=== PATIENT | male | born 1955 | race Caucasian/White ===

== ENCOUNTER 2018-01-03 06:21 | Emergency (ER) | payer OTHER ==
--- OUTSIDE RECORDS SUMMARY | 2018-01-03 06:24 | XMS REPORT | Clinical Summary ---
:1955 Author Organization [facility] Address [address] [place] [address] Phone Care Team Providers Name Role Phone Unavailable Primary Care Provider Unavailable Allergies No Known Allergies Current Medications Prescription Sig. Disp. Refills Start End Status Date Date lisinopril Take 10 mg by Active (PRINIVIL,ZESTRIL) mouth every 10 MG tablet morning. aspirin 81 MG Take 81 mg by Active chewable tablet mouth daily. atorvastatin Take 1 tablet (80 30 tablet 1 03/19/2 Active (LIPITOR) 80 MG mg total) by 17 018 tablet mouth nightly. clopidogrel Take 1 tablet (75 30 tablet 1 03/19/2 Active (PLAVIX) 75 mg mg total) by 17 018 tablet mouth daily. cyanocobalamin Take 1 tablet 30 tablet 1 03/19/2 Active 1000 MCG tablet (1,000 mcg total) 17 018 by mouth daily. folic acid Take 1 tablet (1 30 tablet 1 03/19/20/2 Active (FOLVITE) 1 MG mg total) by 17 018 tablet mouth daily. gabapentin Take 2 capsules 180 capsule 1 03/19/202 Active (NEURONTIN) 100 MG (200 mg total) by 17 018 capsule mouth 3 (three) times daily. heparin injection Inject 1 mL 1 mL 0 03/19/20 Active 5,000 units/mL for (5,000 Units 17 DVT total) prophylaxis/dialys subcutaneously is lock/IV bolus every 8 (eight) hours. ipratropium-albute Take 3 mLs by 1 ampule 0 03/19/2003/14/ Active rol (DUO-NEB) 0.5 nebulization 17 018 mg-3 mg(2.5 mg every 6 (six) base)/3 mL hours as needed nebulizer solution for Wheezing or Shortness of Breath for up to 360 days. metoprolol Take 25 mg by Discontinued (LOPRESSOR) 25 MG mouth 2 (two) 017 tablet times daily. lisinopril Take 20 mg by Discontinued (PRINIVIL,ZESTRIL) mouth every 017 20 MG tablet evening. bisacodyl Place 1 12 suppository 0 03/19/20 (DULCOLAX) 10 mg suppository (10 17 017 suppository mg total) rectally daily as needed for up to 10 days. insulin regular Use as directed. 10 mL 0 03/19/20 Discontinued (HUMULIN R,NOVOLIN 17 017 R) 100 unit/mL injection Active Problems Problem Noted Date Left pontine stroke ([facility]) 03/18/2017 Cerebellar stroke, acute ([facility]) 03/18/2017 Dysphagia following cerebral infarction 03/18/2017 Thrombophlebitis arm 03/18/2017 HTN (hypertension) 03/18/2017 Leukocytosis 03/18/2017 Hyponatremia 03/18/2017 Folate deficiency 03/18/2017 Vitamin B12 deficiency 03/18/2017 Macrocytic anemia 03/18/2017 Obesity (BMI 30.0-34.9) 03/18/2017 Weakness 03/01/2017 Stroke (cerebrum) ([facility]) 03/01/2017 Encounters Date Type Specialty Care Team Description 03/14/2017 Procedure Pass Gastroenterology 03/14/2017 Surgery Gastroenterology HernandezReji Milan ENDOSCOPY,SHARONA Cespedes MD 03/12/2017 Anesthesia Event Gastroenterology Adrianne Rogel MD 03/01/2017 - Hospital General Internal Lazaridis, Weakness;Cerebella 03/20/2017 Encounter Medicine MD Glenys r stroke Carmel Bhatia ([facility]);Dysarthria;I MD Krunal ntracranial Adio, [place] atherosclerosis;MD dwight Shook, circulation stroke MD Jamie ([facility]);Oropharyngea l dysphagia;Balance disorder;Leukocyto sis, unspecified type;Pain in both lower extremities;Folate deficiency;Essenti al hypertension;Left pontine stroke ([facility]);Cerebellar stroke, acute ([facility]);Dysphagia following cerebral infarction after 01/02/2017 Immunizations Name Dates Previously Given Next Due Pneumococcal Polysaccharide (Pneumovax) 03/02/2017 Social History Tobacco Use Types Packs/Day Years Used Date Current Every Day Smoker Cigarettes 0.5 45 Started: 10/01/1971 Smokeless Tobacco: Never Used Tobacco Cessation: Ready to Quit: No Alcohol Use Drinks/Week oz/Week Comments Yes 2 Glasses of wine 1.2 Sex Assigned at Date Recorded Not on file Last Filed Vital Signs Vital Sign Reading Time Taken Blood Pressure 130/60 03/20/2017 7:49 AM CDT Pulse 79 03/20/2017 7:49 AM CDT Temperature 35.8 C (96.5 F) 03/20/2017 7:49 AM CDT Respiratory Rate 18 03/20/2017 7:49 AM CDT Oxygen Saturation 96% 03/20/2017 7:49 AM CDT Inhaled Oxygen Concentration - - Weight 115.6 kg (254 lb 13.6 oz) 03/01/2017 6:00 PM CDT Height 190.5 cm (6' 3") 03/01/2017 6:00 PM CDT Body Mass Index 31.85 03/01/2017 6:00 PM CDT Plan of Treatment Not on file Procedures Procedure Name Priority Date/Time Associated Diagnosis Comments UPPER ENDOSCOPY,BIOPSY 03/14/2017 1:00 PM Dysphagia, unspecified CDT type UPPER ENDOSCOPY,PEG 03/14/2017 1:00 PM Dysphagia, unspecified CDT type after 01/02/2017 Results RHYTHM STRIP - SCAN (03/21/2017 3:20 PM)POC-Glucose meter (03/20/2017 6:04 AM) Only the most recent of64 resultswithin the time period is included. Component Value Ref Range POC-Glucose Meter 127 (H)Comment: TESTED AT [address] 70 - 110 mg/[place] [address] Specimen Performing Laboratory Blood [facility] [address] [address] CBC with platelet count + automated diff (03/19/2017 5:53 AM)Only the most recent of18 resultswithin the time period is included. Component Value Ref Range WBC 16.4 (H) 4.0 - 10.0 K/L RBC 4.76 4.20 - 5.80 M/L Hemoglobin 16.2 13.0 - 16.8 GM/DL Hematocrit 51.0 (H) 40.0 - 50.0 % MCV 107.0 (H) 82.0 - 98.0 fL MCH 34.0 (H) 27.0 - 33.0 pg MCHC 31.7 (L) 32.0 - 36.0 GM/DL RDW 13.3 10.3 - 14.2 % Platelets 351 150 - 430 K/CU MM MPV 8.2 6.5 - 10.5 fL nRBC 0 0 - 0 /100 WBC % Neutros 71 % % Lymphs 14 % % Monos 11 % % Eos 3 % % Baso 0 % # Neutros 11.70 (H) 1.80 - 8.00 K/L # Lymphs 2.21 1.48 - 4.50 K/L # Monos 1.87 (H) 0.00 - 1.30 K/L # Eos 0.56 (H) 0.00 - 0.50 K/L # Baso 0.07 0.00 - 0.20 K/L Specimen Performing Laboratory Blood - Arm, Right [address] [address] Narrative 0.00 CBC with platelet count + automated diff (03/19/2017 5:53 AM)Only the most recent of18 resultswithin the time period is included. Specimen Performing Laboratory Blood Narrative The following orders were created for panel order CBC with platelet count + automated diff. Procedure Abnormality Status --------- ------ CBC with platelet count ...[[id number]]AbnormalFinal result Please view results for these tests on the individual orders. Manual Differential (03/18/2017 3:57 AM) Component Value Ref Range Total Counted WBC Morphology Normal Platelet Morphology Normal RBC Morphology Normal Specimen Performing Laboratory Blood [address] [address] Basic Metabolic Panel (03/18/2017 3:57 AM)Only the most recent of7 resultswithin the time period is included. Component Value Ref Range Sodium 131 (L) 136 - 145 meq/L Potassium 5.0Comment: Specimen slightly hemolyzed 3.5 - 5.1 meq/L Chloride 97 (L) 98 - 107 meq/L CO2 20 (L) 22 - 29 meq/L BUN 24 (H) 7 - 21 mg/dL Creatinine 0.93Comment: Specimen slightly hemolyzed 0.57 - 1.25 mg/dL Glucose 134 (H) 70 - 105 mg/dL Calcium 9.7 8.4 - 10.2 mg/dL EGFR 82Comment: ESTIMATED GFR IS NOT ACCURATE mL/min/1.73 sq m CREATININE CLEARANCE IN PREDICTING GLOMERULAR FILTRATION RATE. ESTIMATED GFR IS NOT APPLICABLE FOR DIALYSIS PATIENTS. Specimen Performing Laboratory [place] [address] REPORT OF PROCEDURE - ENDOSCOPY URL (03/14/2017 7:05 PM)XR chest 1 view portable / bedside (03/14/2017 6:24 PM)Only the most recent of2 resultswithin the time period is included. Specimen Performing Laboratory GE RIS Narrative FINAL REPORT History: Leukocytosis. Comparison: 03/02/2017 Findings: A single view of the chest is submitted. The cardiac silhouette is within normal limits for size. There is atherosclerotic calcification of the aorta. Median sternotomy wires and a left subclavian, multilead ICD are in place. There is no focal consolidation, pneumothorax, large pleural effusion or evidence of overt pulmonary edema. There is no acute bony abnormality. Impression: No acute abnormality. Signed: Jcarlos De Los Santos MD Report Verified Date/Time:03/14/2017 21:53:49 Reading Location: [address] Reading Room Procedure Note Interface, External Ris In - 03/14/2017 9:55 PM CDT FINAL REPORT History: Leukocytosis. Comparison: 03/02/2017 Findings: A single view of the chest is submitted. The cardiac silhouette is within normal limits for size. There is atherosclerotic calcification of the aorta. Median sternotomy wires and a left subclavian, multilead ICD are in place. There is no focal consolidation, pneumothorax, large pleural effusion or evidence of overt pulmonary edema. There is no acute bony abnormality. Impression: No acute abnormality. Signed: Jcarlos De Los Santos MD Report Verified Date/Time: 03/14/2017 21:53:49 Reading Location: [address] Reading Room Urinalysis w/Microscopic (03/14/2017 4:34 PM)Only the most recent of3 resultswithin the time period is included. Component Value Ref Range Color, UA Yellow Clarity, UA Clear Specific [place], UA 1.017 1.001 - 1.035 pH, UA 5.5 5.0 - 8.0 Protein, UA Negative Negative Glucose, UA Negative Negative Ketones, UA Negative Negative Bilirubin, UA Negative Negative Blood, UA Negative Negative Nitrite, UA Negative Negative Leukocytes, UA Negative Negative Urobilinogen, UA 0.2 0.2 - 1.0 mg/dL RBC, UA <1 /HPF WBC, UA 1 /HPF Specimen Source Urine, Voided Specimen Performing Laboratory Urine - Urine, Voided [facility] [address] [address] Tissue Exam (03/14/2017 1:26 PM) Component Value Ref Range Case Report Surgical Pathology Report Case: [id number] Authorizing Provider:Reji Judge Collected: 03/14/2017 1326 MD Coy Ordering Location: [address] Received: 03/14/2017 1501 Service Pathologist: Ronaldo Castillo MD Specimen:Biopsy, Gastric, bx r/o h pylori DIAGNOSIS GASTRIC, BIOPSY - REACTIVE/CHEMICAL GASTROPATHY (SEE COMMENT) - NO INTESTINAL METAPLASIA, NO DYSPLASIA AND NO MALIGNANCY IDENTIFIED - NO HELICOBACTER PYLORI ORGANISMS IDENTIFIED ON WARTHIN-STARRY STAIN COMMENT Chemical gastropathy may be seen in association with NSAID and other agent usage, bile reflux, healing phase of gastritis and gastric ulcer and due to other etiologies. Clinical correlation is suggested. CPT Code(s) 52673, 72842 CLINICAL HISTORY Dysphagia, rule out H. Pylori SPECIMEN SOURCE Gastric biopsy GROSS DESCRIPTION Received in formalin labeled "biopsy, gastric" are three fragments measuring 0.8 x 0.6 x 0.1 cm in aggregate. The specimen is entirely submitted in A1. DB/ew MICROSCOPIC DESCRIPTION Sections reveal fragments of benign antral and corpus type gastric mucosa with fibromuscular hyperplasia within the lamina propria along with mild reactive changes within the glandular epithelium consis tent with reactive/chemical gastropathy.No active gastritis is seen. No Helicobacter pylori organisms are identified on H&E and Warthin starry stain.Intestinal metaplasia, dysplasia and malignancy are not seen. Specimen Performing Laboratory Tissue - Biopsy, Gastric [facility] [address] [place] [address] PERIPHERAL VASCULAR REPORT - SCAN (03/14/2017 7:20 AM)Prothrombin time/INR ( 3:52 AM)Only the most recent of2 resultswithin the time period is included. Component Value Ref Range Protime 13.8 11.7 - 14.7 seconds INR 1.1 <=5.9 Specimen Performing Laboratory Blood [address] [address] Narrative RECOMMENDED COUMADIN/WARFARIN INR THERAPY RANGES STANDARD DOSE: 2.0 - 3.0 Includes: PROPHYLAXIS for venous thrombosis, systemic embolization; TREATMENT for venous thrombosis and/or pulmonary embolus. HIGH RISK: Target INR is 2.5-3.5 for patients with mechanical heart valves. Venous doppler legs bilateral (03/13/2017 5:27 PM) Component Value Ref Range Ejection Fraction Specimen Performing Laboratory [facility] Impressions Right Impression 1. There is no deep venous obstruction in the common femoral, profunda femoral, femoral, popliteal, posterior tibial or peroneal veins. 2. There is no superficial venous obstruction in the great saphenous vein. Left Impression 1. There is no deep venous obstruction in the common femoral, profunda femoral, femoral, popliteal, posterior tibial or peroneal veins. 2. There is no superficial venous obstruction in the great saphenous vein. Conclusions Summary Venous duplex imaging and compression of the bilateral lower extremities were performed. The veins were adequately visualized. The bilateral venous systems were patent and compressible with no evidence of thrombus. The venous Doppler waveforms were phasic with respiration . Signature Velocities are measured in cm/s ; Diameters are measured in cm Narrative [facility] - Lower Extremities DVT Study Demographics Patient Name CHUY FLOWERS Date of Study03/13/2017 [id number] Visit Number [id number] Gender Male Accession Number [id number] Date of Birth1955 Alisha Mcdermott [place] Physician SonographerJordan Quintana MD, [facility] Procedure Type of Study: Veins: Lower Extremities DVT Study, VENOUS DOPPLER LEG, BILATERAL. Indications for Study:Leg pain . Patient Status:Routine. Study Location:Vascular Lab. Technical Quality:Adequate visualization. Risk Factors History of Disease +---------+----+ + !Diagnosis!Date!Comments ! +---------+----+ + !Other!!Smoker, Weakness, Stroke ! +---------+----+ + Procedure Note Interface, External Ris In - 03/14/2017 4:51 AM CDT [facility] - Lower Extremities DVT Study Demographics Patient Name CHUY FLOWERS Date of Study 03/13/2017 Age 61 Visit Number [id number] Gender Male Accession Number [id number] Date of 1955 Referring Brendan Hassan Room Number 2210 Physician Airport Planner Antione Orozco T Physician , RPVI Procedure Type of Study: Veins: Lower Extremities DVT Study, VENOUS DOPPLER LEG, BILATERAL. Indications for Study:Leg pain . Patient Status:Routine. Study Location:Vascular Lab. Technical Quality:Adequate visualization. Risk Factors History of Disease +---------+----+ + !Diagnosis!Date!Comments ! +---------+----+ + !Other ! !Smoker, Weakness, Stroke ! +---------+----+ + Impressions Right Impression 1. There is no deep venous obstruction in the common femoral, profunda femoral, femoral, popliteal, posterior tibial or peroneal veins. 2. There is no superficial venous obstruction in the great saphenous vein. Left Impression 1. There is no deep venous obstruction in the common femoral, profunda femoral, femoral, popliteal, posterior tibial or peroneal veins. 2. There is no superficial venous obstruction in the great saphenous vein. Conclusions Summary Venous duplex imaging and compression of the bilateral lower extremities were performed. The veins were adequately visualized. The bilateral venous systems were patent and compressible with no evidence of thrombus. The venous Doppler waveforms were phasic with respiration . Signature Velocities are measured in cm/s ; Diameters are measured in cm ECG 12 lead (03/13/2017 10:22 AM) Specimen Performing Laboratory GE MUSE Narrative Ventricular Rate 81 BPM Atrial Rate 81 BPM P-R Interval 144 ms QRS Duration 126 ms Q-T Interval 420 ms QTC Calculation(Bazett) 487 ms P Custar 79 degrees R Custar -30 degrees T Custar 60 degrees Sinus rhythm Right bundle branch block Electronic ventricular pacemaker with ventricular fusion No previous ECGs available Confirmed by MD REINA, IHAB ([id number]) on 03/14/2017 11:50:37 PM Procedure Note Interface, External Ris In - 03/14/2017 11:50 PM CDT Ventricular Rate 81 BPM Atrial Rate 81 BPM P-R Interval 144 ms QRS Duration 126 ms Q-T Interval 420 ms QTC Calculation(Bazett) 487 ms P Custar 79 degrees R Custar -30 degrees T Custar 60 degrees Sinus rhythm Right bundle branch block Electronic ventricular pacemaker with ventricular fusion No previous ECGs available Confirmed by MD REINA, IHAB ([id number]) on 03/14/2017 11:50:37 PM FL esoph swallow funct with cine video (03/11/2017 4:20 PM)Only the most recent of2 resultswithin the time period is included. Specimen Performing Laboratory GE RIS Narrative FINAL REPORT Modified barium swallow Reason for study: Swallowing dysfunction Discussion: This exam was performed in conjunction with speech pathology. The patient swallowed different thicknesses of barium, and the swallowing was observed fluoroscopically. There is aspiration of nectar laden barium. The examination was stopped at this point. Impression: Aspiration. Please refer to the report from speech pathology for further information and recommendations. Two lateral fluoroscopic images of the neck were obtained. Fluoroscopy time-0.68 minutes. Signed: Adi Martinez MD Report Verified Date/Time:03/11/2017 17:02:26 Reading Location: [id number] Ortho Consult Reading Room Procedure Note Interface, External Ris In - 03/11/2017 5:04 PM CDT FINAL REPORT Modified barium swallow Reason for study: Swallowing dysfunction Discussion: This exam was performed in conjunction with speech pathology. The patient swallowed different thicknesses of barium, and the swallowing was observed fluoroscopically. There is aspiration of nectar laden barium. The examination was stopped at this point. Impression: Aspiration. Please refer to the report from speech pathology for further information and recommendations. Two lateral fluoroscopic images of the neck were obtained. Fluoroscopy time-0.68 minutes. Signed: Adi Martinez MD Report Verified Date/Time: 03/11/2017 17:02:26 Reading Location: [id number] Ortho Consult Reading Room Uric acid (03/08/2017 5:20 AM) Component Value Ref Range Uric Acid 7.2Comment: Specimen slightly hemolyzed 2.6 - 7.2 mg/dL Specimen Performing Laboratory Blood [facility] [address] [address] XR hand 3 views right (03/07/2017 6:24 PM) Specimen Performing Laboratory GE RIS Narrative FINAL REPORT RAD, HAND, 3 VIEWS, RIGHT CLINICAL INDICATION: pt with swelling, pain right wrist COMPARISON: None FINDINGS: Frontal, oblique, and lateral views of the right hand. There is no fracture or malalignment.Mild degenerative changes noted in the joint spaces. Surrounding soft tissues are unremarkable. IMPRESSION: No acute abnormality of the right hand. Signed: JR Allen Robert MD Report Verified Date/Time:03/07/2017 20:15:39 Reading Location: [address] Reading Room Procedure Note Interface, External Ris In - 03/07/2017 8:17 PM CDT FINAL REPORT RAD, HAND, 3 VIEWS, RIGHT CLINICAL INDICATION: pt with swelling, pain right wrist COMPARISON: None FINDINGS: Frontal, oblique, and lateral views of the right hand. There is no fracture or malalignment. Mild degenerative changes noted in the joint spaces. Surrounding soft tissues are unremarkable. IMPRESSION: No acute abnormality of the right hand. Signed: JR Allen Robert MD Report Verified Date/Time: 03/07/2017 20:15:39 Reading Location: [address] Reading Room 2D Echo W/Doppler(CW/PW/Color) (03/04/2017 2:34 PM) Specimen Performing Laboratory [facility] Echocardiography Laboratory [address] [place], [place] [id number] Voice:[phone] Transthoracic Echocardiogram Pat.Name:Priscila FLOWERS.ID:[id number] .Date: 03/04/2017Refer.MD:GLENYS MUNOZ Exam Time: 2:34:00 PMStudy Type:Echo Complete Height:63inWeight:245lb BSA: 2.11 m2 DOBAge:1955,61Y Sex: MALEBP:182/85 HR:70 bpmSonogrphr: Nila Hays [facility] Pat. Stat.:Inpatient Room:[facility] Reason for Study:Suspected Cardiac Source of Emboli History / Clinical:Stroke/TIA Procedures:2D ECHO W/ DOPPLER (CW/PW/COLOR), Definity contrast done, Agitated saline done SUMMARY: Left ventricular chamber size (by PSLAX dimension) is normal (male - LVIDd4.2-5.8 cm). Typd-zm-hptpccyu concentric LV hypertrophy. The following segment(s) appear hypokinetic: basal-mid inferolateral.. The other segments contract normally. LVEF by quantitative assessment is normal (55-60%). The right ventricular chamber size and systolic function are within normal limits. IV saline contrast injection was negative for a PFO (patent foramen ovale) at rest and post Valsalva. Estimated peak systolic PA pressure is 30-35 mmHg + RA pressure. No pericardial effusion is visualized. FINDINGS: LV: Global LV systolic function is normal. Ftga-pq-umqwmbhv concentricLV hypertrophy. LVEF by quantitative assessment isnormal (55-60%). Left ventricular chamber size (by PSLAX dimension)is normal (male - LVIDd4.2-5.8 cm). The followingsegment(s) appear hypokinetic: basal-mid inferolateral..LV endocardium is adequately visualized with IV contrast. The other segments contract normally. LA: LA size is normal. RV: The right ventricular chamber size and systolic function are withinnormal limits. RV pacing wire is visualized.. RA: RA cavity size is normal. RA pacing wire is visualized. IAS:IV saline contrast injection was negative for a PFO (patent foramenovale) at rest and post Valsalva. AV: Mild AoV cusp thickening. MV: Mild MV leaflet thickening. Mild mitral regurgitation. Mild mitralannular calcification. TV: Mild tricuspid regurgitation. Estimated peak systolic PA pressureis 30-35 mmHg + RA pressure. PV: Normal PV structure appears normal by available views. AO: Aortic root size (Sinus of Valsalva diameter) is mildly dilated. Pericard: No pericardial effusion is visualized. Systemic Veins: The inferior vena cava is not well visualized. MEASUREMENTS: 2D LA Sng Plane LA Vol70.3 mlIndex 33.3 ml/m2 LA Area 23.1 cm2(8.8-23.4) LVOT Stroke Vol & Cardiac Out LVOT 2.3 cm Parasternal Long Custar Ao An 2.28 cm (1.4-2.6) LVPWd 1.43 cm Ao Rtd3.89 cm LA Ds 3.79 cm (2.3-3.9) IVSd1.43 cmLV Wmn1.43 cm LVIDd 5.63 cm (4.3-5.1)* DOPPLER LVOT Stroke Vol & Cardiac Out LVOT VTI22 cmLVOT CO 6.91 l/min LVOT SV 91.4 mlLVOT CI 3.27 l/min/m2 Aortic Valve SVi (LVOT)43.3 Velocity PG 31.7 mmHg Signed 03/04/2017 04:38 PM Doug Thomas M.D. Procedure Note Interface, External Ris In - 03/04/2017 4:39 PM CDT Echocardiography Laboratory [address] [place] [address] Voice: [phone] Transthoracic Echocardiogram Pat.Name: CHUY FLOWERS Pat.ID: [id number] .Date: 03/04/2017 Refer.MD: GLENYS MUNOZ Exam Time: 2:34:00 PM Study Type:Echo Complete Height: 63in Weight: 245lb BSA: 2.11 m2 Age: 2 1955,61Y Sex: MALE BP: 182/85 HR: 70 bpm Sonogrphr: Nila Hays [facility] Pat. Stat.:Inpatient Room: [facility] Reason for Study:Suspected Cardiac Source of Emboli History / Clinical:Stroke/TIA Procedures:2D ECHO W/ DOPPLER (CW/PW/COLOR), Definity contrast done, Agitated saline done SUMMARY: Left ventricular chamber size (by PSLAX dimension) is normal (male - LVIDd 4.2-5.8 cm). Bnpv-xl-lulsjsoo concentric LV hypertrophy. The following segment(s) appear hypokinetic: basal-mid inferolateral.. The other segments contract normally. LVEF by quantitative assessment is normal (55-60%). The right ventricular chamber size and systolic function are within normal limits. IV saline contrast injection was negative for a PFO (patent foramen ovale) at rest and post Valsalva. Estimated peak systolic PA pressure is 30-35 mmHg + RA pressure. No pericardial effusion is visualized. FINDINGS: LV: Global LV systolic function is normal. Unne-hd-yjixfyve concentric LV hypertrophy. LVEF by quantitative assessment is normal (55-60%). Left ventricular chamber size (by PSLAX dimension) is normal (male - LVIDd 4.2-5.8 cm). The following segment(s) appear hypokinetic: basal-mid inferolateral.. LV endocardium is adequately visualized with IV contrast. The other segments contract normally. LA: LA size is normal. RV: The right ventricular chamber size and systolic function are within normal limits. RV pacing wire is visualized.. RA: RA cavity size is normal. RA pacing wire is visualized. IAS: IV saline contrast injection was negative for a PFO (patent foramen ovale) at rest and post Valsalva. AV: Mild AoV cusp thickening. MV: Mild MV leaflet thickening. Mild mitral regurgitation. Mild mitral annular calcification. TV: Mild tricuspid regurgitation. Estimated peak systolic PA pressure is 30-35 mmHg + RA pressure. PV: Normal PV structure appears normal by available views. AO: Aortic root size (Sinus of Valsalva diameter) is mildly dilated. Pericard: No pericardial effusion is visualized. Systemic Veins: The inferior vena cava is not well visualized. MEASUREMENTS: 2D LA Sng Plane LA Vol 70.3 ml Index 33.3 ml/m2 LA Area 23.1 cm2 (8.8-23.4) LVOT Stroke Vol & Cardiac Out LVOT 2.3 cm Parasternal Long Custar Ao An 2.28 cm (1.4-2.6) LVPWd 1.43 cm Ao Rtd 3.89 cm LA Ds 3.79 cm (2.3-3.9) IVSd 1.43 cm LV Wmn 1.43 cm LVIDd 5.63 cm (4.3-5.1)* DOPPLER LVOT Stroke Vol & Cardiac Out LVOT VTI 22 cm LVOT CO 6.91 l/min LVOT SV 91.4 ml LVOT CI 3.27 l/min/m2 Aortic Valve SVi (LVOT) 43.3 Velocity PG 31.7 mmHg Signed 03/04/2017 04:38 PM oDug Thomas M.D. XR abdomen / KUB 1 view (03/02/2017 5:04 PM)Only the most recent of4 resultswithin the time period is included. Specimen Performing Laboratory GE RIS Impressions : Tip of the feeding tube projects over the right upper abdomen along the expected course of the descending segment of the duodenum. Visualized bowel gas pattern is nonspecific. A cluster of small subcentimeter radiopaque densities project over the right upper quadrant of uncertain etiology or clinical significance. Signed: Antione Hoffman MD Report Verified Date/Time:03/02/2017 17:11:47 Reading Location: [address] Reading Room Narrative FINAL REPORT EXAMINATION: SUPINE ABDOMEN CLINICAL INDICATION:FEEDING TUBE PLACEMENT Procedure Note Interface, External Ris In - 03/02/2017 5:30 PM CDT FINAL REPORT EXAMINATION: SUPINE ABDOMEN CLINICAL INDICATION: FEEDING TUBE PLACEMENT IMPRESSION : Tip of the feeding tube projects over the right upper abdomen along the expected course of the descending segment of the duodenum. Visualized bowel gas pattern is nonspecific. A cluster of small subcentimeter radiopaque densities project over the right upper quadrant of uncertain etiology or clinical significance. Signed: Antione Hoffman MD Report Verified Date/Time: 03/02/2017 17:11:47 Reading Location: [address] Reading Room brain without IV contrast portable (03/02/2017 12:20 PM) Specimen Performing Laboratory GE RIS Impressions : No intracranial hemorrhage or mass effect. Acute-appearing cerebellar ischemia. Signed: Maikol Gardner MD Report Verified Date/Time:03/02/2017 12:27:50 Reading Location: [address] Neuro Reading Room Narrative FINAL REPORT CT head without contrast 03/02/2017 12:25 PM CLINICAL HISTORY: post tpa TECHNIQUE: Contiguous axial images through the head without contrast were obtained utilizing the portable CT unit. This examination was performed according to our departmental dose optimization program, which includes automated exposure control, adjustment of the mA and/or kV according to patient size, and/or use of iterated reconstruction technique. COMPARISON: 03/01/2017 FINDINGS: There is no intracranial hemorrhage, mass, hydrocephalus, extra-axial collection, or midline shift. There is acute appearing ischemia in the left greater than right cerebellar hemispheres.. The visualized paranasal sinuses and tympanomastoid cavities are well-aerated. The skull is intact. Procedure Note Interface, External Ris In - 03/02/2017 12:29 PM CDT FINAL REPORT CT head without contrast 03/02/2017 12:25 PM CLINICAL HISTORY: post tpa TECHNIQUE: Contiguous axial images through the head without contrast were obtained utilizing the portable CT unit. This examination was performed according to our departmental dose optimization program, which includes automated exposure control, adjustment of the mA and/or kV according to patient size, and/or use of iterated reconstruction technique. COMPARISON: 03/01/2017 FINDINGS: There is no intracranial hemorrhage, mass, hydrocephalus, extra-axial collection, or midline shift. There is acute appearing ischemia in the left greater than right cerebellar hemispheres.. The visualized paranasal sinuses and tympanomastoid cavities are well-aerated. The skull is intact. IMPRESSION : No intracranial hemorrhage or mass effect. Acute-appearing cerebellar ischemia. Signed: Maikol Gardner MD Report Verified Date/Time: 03/02/2017 12:27:50 Reading Location: [address] Neuro Reading Room Phosphorus (03/02/2017 3:45 AM) Component Value Ref Range Phosphorus 4.1 2.3 - 4.7 mg/dL Specimen Performing Laboratory Blood - Arm, [address] [address] Magnesium (03/02/2017 3:45 AM) Component Value Ref Range Magnesium 1.9 1.6 - 2.6 mg/dL Specimen Performing Laboratory Blood - Arm, [address] [address] Hepatic function panel (03/02/2017 3:45 AM) Component Value Ref Range Protein, Total 6.6 6.0 - 8.3 gm/dL Albumin 3.7 3.5 - 5.0 g/dL Total Bilirubin 1.2 0.2 - 1.2 mg/dL Bilirubin, Direct 0.3 0.1 - 0.5 mg/dL Alkaline Phosphatase 45 40 - 150 U/L AST 22 5 - 34 U/L ALT 21 6 - 55 U/L Specimen Performing Laboratory Blood - Arm, [address] [address] CTA carotid (03/01/2017 10:52 PM) Specimen Performing Laboratory GE RIS Impressions : 25% stenosis of the right internal carotid artery origin by NASCET criteria. Less than 50% stenosis of the distal internal carotid arteries at the skull skull base by NASCET criteria. CT Angiogram head with contrast CLINICAL HISTORY: TECHNIQUE: Contiguous contrast-enhanced axial images through the head with coronal and sagittal reformations to assess the arterial circulation. Images were performed after the uncomplicated administration of IV contrast via antecubital IV. 3-D reconstructions were performed separately on a workstation and included MIP and volume rendered reconstructions of the intracranial arteries. This exam was performed to our departmental dose optimization program which includes automated exposure control, adjustment of the mA and/or kV according to patient size and/or use of iterative reconstruction techniques. COMPARISON: None. FINDINGS: The noncontrast head CT images reveal no evidence of acute infarct or hemorrhage. There are no extra-axial fluid collections. The ventricles and sulci are appropriate for the patient's age without hydrocephalus or midline shift. The skull is intact. Two periventricular hypodensities are present. 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 Mild plaque formation is present within the V4 segment with mild stenosis. Mild to moderate atherosclerotic plaque formation within both cavernous carotid arteries with moderate stenosis of the right cavernous carotid and mild stenosis of the left cavernous carotid artery. Otherwise the CT angiogram images reveal no evidence of intracranial aneurysm, or branch vessel occlusion. IMPRESSION: 1. Occluded right C4 segment. Mild stenosis of the left V4 segment. Mild to moderate atherosclerotic plaque formation within both cavernous carotid arteries with moderate stenosis of the right cavernous carotid and mild stenosis of the left cavernous carotid artery. No aneurysm or vessel occlusion. 2. No CT evidence of acute infarct or hemorrhage. Signed: Hamzah Bates MD Report Verified Date/Time:03/01/2017 23:27:49 Reading Location: [address] Reading Room Narrative FINAL REPORT CTA Neck and upper chest Clinical history: Stroke evaluation. TECHNIQUE: Multiple axial images of the neck were performed after the uncomplicated administration of IV contrast via antecubital IV. Coronal and sagittal reformations were also performed. 3-D reconstructions were performed separately on a workstation and included MIP and volume rendered reconstructions of the cervical carotids and vertebral arteries. This exam was performed to our departmental dose optimization program which includes automated exposure control, adjustment of the mA and/or kV according to patient size and/or use of iterative reconstruction techniques. Comparisons: None FINDINGS: Right common carotid artery origin is patent. Mild plaque formation is present within the common carotid artery. Moderate plaque formation is present within the right carotid bulb which extends into the right internal carotid artery results in approximately 25% stenosis by NASCET criteria. Mild plaque formation is present within the distal internal carotid artery at the skull base at the level of occipital condyles which results in less than 50% stenosis by NASCET criteria. Mild plaque formation is present at the origin of the left common carotid artery and along the course of the left common carotid artery. Moderate plaque formation is present in the left carotid bulb and mild along the proximal left internal carotid artery without demonstration of stenosis by NASCET criteria.Mild plaque formation is present within the distal internal carotid artery at the skull base at the level of occipital condyles which results in less than 50% stenosis by NASCET criteria. Moderate to severe stenosis of the right vertebral artery origin. Left vertebral artery origin is patent. Distally, the vertebral arteries opacify normally within the neck. No evidence for dissection. There are multilevel spondylitic changes in the cervical spine. The soft tissues of the neck are unremarkable. The visualized lung apices are clear. Partial demonstration of left chest wall pacemaker/AICD. Median sternotomy wires. Procedure Note Interface, External Ris In - 03/01/2017 11:29 PM CDT FINAL REPORT CTA Neck and upper chest Clinical history: Stroke evaluation. TECHNIQUE: Multiple axial images of the neck were performed after the uncomplicated administration of IV contrast via antecubital IV. Coronal and sagittal reformations were also performed. 3-D reconstructions were performed separately on a workstation and included MIP and volume rendered reconstructions of the cervical carotids and vertebral arteries. This exam was performed to our departmental dose optimization program which includes automated exposure control, adjustment of the mA and/or kV according to patient size and/or use of iterative reconstruction techniques. Comparisons: None FINDINGS: Right common carotid artery origin is patent. Mild plaque formation is present within the common carotid artery. Moderate plaque formation is present within the right carotid bulb which extends into the right internal carotid artery results in approximately 25% stenosis by NASCET criteria. Mild plaque formation is present within the distal internal carotid artery at the skull base at the level of occipital condyles which results in less than 50% stenosis by NASCET criteria. Mild plaque formation is present at the origin of the left common carotid artery and along the course of the left common carotid artery. Moderate plaque formation is present in the left carotid bulb and mild along the proximal left internal carotid artery without demonstration of stenosis by NASCET criteria.Mild plaque formation is present within the distal internal carotid artery at the skull base at the level of occipital condyles which results in less than 50% stenosis by NASCET criteria. Moderate to severe stenosis of the right vertebral artery origin. Left vertebral artery origin is patent. Distally, the vertebral arteries opacify normally within the neck. No evidence for dissection. There are multilevel spondylitic changes in the cervical spine. The soft tissues of the neck are unremarkable. The visualized lung apices are clear. Partial demonstration of left chest wall pacemaker/AICD. Median sternotomy wires. IMPRESSION : 25% stenosis of the right internal carotid artery origin by NASCET criteria. Less than 50% stenosis of the distal internal carotid arteries at the skull skull base by NASCET criteria. CT Angiogram head with contrast CLINICAL HISTORY: TECHNIQUE: Contiguous contrast-enhanced axial images through the head with coronal and sagittal reformations to assess the arterial circulation. Images were performed after the uncomplicated administration of IV contrast via antecubital IV. 3-D reconstructions were performed separately on a workstation and included MIP and volume rendered reconstructions of the intracranial arteries. This exam was performed to our departmental dose optimization program which includes automated exposure control, adjustment of the mA and/or kV according to patient size and/or use of iterative reconstruction techniques. COMPARISON: None. FINDINGS: The noncontrast head CT images reveal no evidence of acute infarct or hemorrhage. There are no extra-axial fluid collections. The ventricles and sulci are appropriate for the patient's age without hydrocephalus or midline shift. The skull is intact. Two periventricular hypodensities are present. 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 Mild plaque formation is present within the V4 segment with mild stenosis. Mild to moderate atherosclerotic plaque formation within both cavernous carotid arteries with moderate stenosis of the right cavernous carotid and mild stenosis of the left cavernous carotid artery. Otherwise the CT angiogram images reveal no evidence of intracranial aneurysm, or branch vessel occlusion. IMPRESSION: 1. Occluded right C4 segment. Mild stenosis of the left V4 segment. Mild to moderate atherosclerotic plaque formation within both cavernous carotid arteries with moderate stenosis of the right cavernous carotid and mild stenosis of the left cavernous carotid artery. No aneurysm or vessel occlusion. 2. No CT evidence of acute infarct or hemorrhage. Signed: Hamzah Bates MD Report Verified Date/Time: 03/01/2017 23:27:49 Reading Location: [address] Transitional Reading Room brain (03/01/2017 10:52 PM) Specimen Performing Laboratory [facility] Narrative FINAL REPORT CTA Neck and upper chest Clinical history: Stroke evaluation. TECHNIQUE: Multiple axial images of the neck were performed after the uncomplicated administration of IV contrast via antecubital IV. Coronal and sagittal reformations were also performed. 3-D reconstructions were performed separately on a workstation and included MIP and volume rendered reconstructions of the cervical carotids and vertebral arteries. This exam was performed to our departmental dose optimization program which includes automated exposure control, adjustment of the mA and/or kV according to patient size and/or use of iterative reconstruction techniques. Comparisons: None FINDINGS: Right common carotid artery origin is patent. Mild plaque formation is present within the common carotid artery. Moderate plaque formation is present within the right carotid bulb which extends into the right internal carotid artery results in approximately 25% stenosis by NASCET criteria. Mild plaque formation is present within the distal internal carotid artery at the skull base at the level of occipital condyles which results in less than 50% stenosis by NASCET criteria. Mild plaque formation is present at the origin of the left common carotid artery and along the course of the left common carotid artery. Moderate plaque formation is present in the left carotid bulb and mild along the proximal left internal carotid artery without demonstration of stenosis by NASCET criteria.Mild plaque formation is present within the distal internal carotid artery at the skull base at the level of occipital condyles which results in less than 50% stenosis by NASCET criteria. Moderate to severe stenosis of the right vertebral artery origin. Left vertebral artery origin is patent. Distally, the vertebral arteries opacify normally within the neck. No evidence for dissection. There are multilevel spondylitic changes in the cervical spine. The soft tissues of the neck are unremarkable. The visualized lung apices are clear. Partial demonstration of left chest wall pacemaker/AICD. Median sternotomy wires. IMPRESSION: 25% stenosis of the right internal carotid artery origin by NASCET criteria. Less than 50% stenosis of the distal internal carotid arteries at the skull skull base by NASCET criteria. CT Angiogram head with contrast CLINICAL HISTORY: TECHNIQUE: Contiguous contrast-enhanced axial images through the head with coronal and sagittal reformations to assess the arterial circulation. Images were performed after the uncomplicated administration of IV contrast via antecubital IV. 3-D reconstructions were performed separately on a workstation and included MIP and volume rendered reconstructions of the intracranial arteries. This exam was performed to our departmental dose optimization program which includes automated exposure control, adjustment of the mA and/or kV according to patient size and/or use of iterative reconstruction techniques. COMPARISON: None. FINDINGS: The noncontrast head CT images reveal no evidence of acute infarct or hemorrhage. There are no extra-axial fluid collections. The ventricles and sulci are appropriate for the patient's age without hydrocephalus or midline shift. The skull is intact. Two periventricular hypodensities are present. 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 Mild plaque formation is present within the V4 segment with mild stenosis. Mild to moderate atherosclerotic plaque formation within both cavernous carotid arteries with moderate stenosis of the right cavernous carotid and mild stenosis of the left cavernous carotid artery. Otherwise the CT angiogram images reveal no evidence of intracranial aneurysm, or branch vessel occlusion. IMPRESSION: 1. Occluded right C4 segment. Mild stenosis of the left V4 segment. Mild to moderate atherosclerotic plaque formation within both cavernous carotid arteries with moderate stenosis of the right cavernous carotid and mild stenosis of the left cavernous carotid artery. No aneurysm or vessel occlusion. 2. No CT evidence of acute infarct or hemorrhage. Signed: Hamzah Bates MD Report Verified Date/Time:03/01/2017 23:27:49 Reading Location: [address] Transitional Reading Room Procedure Note Interface, External Ris In - 03/05/2017 10:56 PM CDT FINAL REPORT CTA Neck and upper chest Clinical history: Stroke evaluation. TECHNIQUE: Multiple axial images of the neck were performed after the uncomplicated administration of IV contrast via antecubital IV. Coronal and sagittal reformations were also performed. 3-D reconstructions were performed separately on a workstation and included MIP and volume rendered reconstructions of the cervical carotids and vertebral arteries. This exam was performed to our departmental dose optimization program which includes automated exposure control, adjustment of the mA and/or kV according to patient size and/or use of iterative reconstruction techniques. Comparisons: None FINDINGS: Right common carotid artery origin is patent. Mild plaque formation is present within the common carotid artery. Moderate plaque formation is present within the right carotid bulb which extends into the right internal carotid artery results in approximately 25% stenosis by NASCET criteria. Mild plaque formation is present within the distal internal carotid artery at the skull base at the level of occipital condyles which results in less than 50% stenosis by NASCET criteria. Mild plaque formation is present at the origin of the left common carotid artery and along the course of the left common carotid artery. Moderate plaque formation is present in the left carotid bulb and mild along the proximal left internal carotid artery without demonstration of stenosis by NASCET criteria.Mild plaque formation is present within the distal internal carotid artery at the skull base at the level of occipital condyles which results in less than 50% stenosis by NASCET criteria. Moderate to severe stenosis of the right vertebral artery origin. Left vertebral artery origin is patent. Distally, the vertebral arteries opacify normally within the neck. No evidence for dissection. There are multilevel spondylitic changes in the cervical spine. The soft tissues of the neck are unremarkable. The visualized lung apices are clear. Partial demonstration of left chest wall pacemaker/AICD. Median sternotomy wires. IMPRESSION: 25% stenosis of the right internal carotid artery origin by NASCET criteria. Less than 50% stenosis of the distal internal carotid arteries at the skull skull base by NASCET criteria. CT Angiogram head with contrast CLINICAL HISTORY: TECHNIQUE: Contiguous contrast-enhanced axial images through the head with coronal and sagittal reformations to assess the arterial circulation. Images were performed after the uncomplicated administration of IV contrast via antecubital IV. 3-D reconstructions were performed separately on a workstation and included MIP and volume rendered reconstructions of the intracranial arteries. This exam was performed to our departmental dose optimization program which includes automated exposure control, adjustment of the mA and/or kV according to patient size and/or use of iterative reconstruction techniques. COMPARISON: None. FINDINGS: The noncontrast head CT images reveal no evidence of acute infarct or hemorrhage. There are no extra-axial fluid collections. The ventricles and sulci are appropriate for the patient's age without hydrocephalus or midline shift. The skull is intact. Two periventricular hypodensities are present. 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 Mild plaque formation is present within the V4 segment with mild stenosis. Mild to moderate atherosclerotic plaque formation within both cavernous carotid arteries with moderate stenosis of the right cavernous carotid and mild stenosis of the left cavernous carotid artery. Otherwise the CT angiogram images reveal no evidence of intracranial aneurysm, or branch vessel occlusion. IMPRESSION: 1. Occluded right C4 segment. Mild stenosis of the left V4 segment. Mild to moderate atherosclerotic plaque formation within both cavernous carotid arteries with moderate stenosis of the right cavernous carotid and mild stenosis of the left cavernous carotid artery. No aneurysm or vessel occlusion. 2. No CT evidence of acute infarct or hemorrhage. Signed: Hamzah Bates MD Report Verified Date/Time: 03/01/2017 23:27:49 Reading Location: [address] Reading Room Vitamin B12 and Folate (03/01/2017 7:41 PM) Component Value Ref Range Vitamin B12 273 213 - 816 pg/mL Folate 3.7 (L) >=7.0 ng/mL Specimen Performing Laboratory Blood - Arm, [address] [address] Narrative Effective 08/17/2014: Folate Reference Range Change New: >=7.0Previous: >=5.4 TSH/Free T4 If Indicated (03/01/2017 7:41 PM) Component Value Ref Range TSH 2.07 0.35 - 4.94 uIU/mL Specimen Performing Laboratory Blood - Arm, [address] [address] Hemoglobin A1c (03/01/2017 7:41 PM) Component Value Ref Range Hemoglobin A1C 5.1 4.3 - 6.1 % Specimen Performing Laboratory Blood - Arm, [address] [address] Lipid panel (03/01/2017 7:41 PM) Component Value Ref Range Triglycerides 249 mg/dL Cholesterol 235 mg/dL HDL 35 mg/dL LDL Calculated 150 mg/dL Specimen Performing Laboratory Blood - Arm, [address] [address] Narrative Triglyceride Reference Range: Low Risk <150 [id number] High Risk 200-499 Very High Risk>=500 Cholesterol Reference Range: Low Risk <200 [id number] High Risk>240 HDL Cholesterol Reference Range: Low Risk >=60 High Risk <40 LDL Cholesterol Reference Range: Optimal<100 Near [id number] Very High >=190 after 01/02/2017
--- OUTSIDE RECORDS SUMMARY | 2018-01-03 06:25 | XMS REPORT ---
:1955 [facility] [address] [place] [address] [address] [place] [address] Care Team Providers Name Role Phone GLENYS MUNOZ Unavailable Unavailable Problems This patient has no known problems. Allergies, Adverse Reactions, Alerts This patient has no known allergies or adverse reactions. Medications This patient has no known medications. Results Test Description Test Time Test Comments Text Results Atomic Results Result Comments POCT-GLUCOSE METER 2017-03-20 06:10:00 Test Item Value Reference Range Comments POC-GLUCOSE METER (BEAKER) (test 127 mg/dL 70-110 TESTED AT [address] jdgj=7635) [place] [id number] POCT-GLUCOSE [id number] 23:28:00 Test Item Value Reference Range Comments POC-GLUCOSE METER (BEAKER) 124 mg/dL 70-110 TESTED AT [address] (test ggkh=1117) [place] [id number] POCT-GLUCOSE [id number] 16:58:00 Test Item Value Reference Range Comments POC-GLUCOSE METER (BEAKER) 111 mg/dL 70-110 TESTED AT [address] (test rllo=7989) [place] [id number] POCT-GLUCOSE [id number] 11:32:00 Test Item Value Reference Range Comments POC-GLUCOSE METER (BEAKER) 120 mg/dL 70-110 TESTED AT [address] (test dphi=9534) [place] [id number] CBC W/PLT COUNT & AUTO [id number] 06:26:00 Test Item Value Reference Range Comments WHITE BLOOD CELL COUNT (BEAKER) (test gypy=096) 16.4 K/ L 4.0-10.0 RED BLOOD CELL COUNT (BEAKER) (test pccw=735) 4.76 M/ L 4.20-5.80 HEMOGLOBIN (BEAKER) (test kchh=566) 16.2 GM/DL 13.0-16.8 HEMATOCRIT (BEAKER) (test eppr=539) 51.0 % 40.0-50.0 MEAN CORPUSCULAR VOLUME (BEAKER) (test vnbh=202) 107.0 fL 82.0-98.0 MEAN CORPUSCULAR HEMOGLOBIN (BEAKER) (test 34.0 pg 27.0-33.0 vlad=002) MEAN CORPUSCULAR HEMOGLOBIN CONC (BEAKER) (test 31.7 GM/DL 32.0-36.0 cahp=243) RED CELL DISTRIBUTION WIDTH (BEAKER) (test 13.3 % 10.3-14.2 lrov=588) PLATELET COUNT (BEAKER) (test vdcg=491) 351 K/CU MM 150-430 MEAN PLATELET VOLUME (BEAKER) (test lmbn=410) 8.2 fL 6.5-10.5 NUCLEATED RED BLOOD CELLS (BEAKER) (test 0 /100 WBC 0-0 dbcx=549) NEUTROPHILS RELATIVE PERCENT (BEAKER) (test 71 % xbop=859) LYMPHOCYTES RELATIVE PERCENT (BEAKER) (test 14 % ykka=331) MONOCYTES RELATIVE PERCENT (BEAKER) (test 11 % xuxq=100) EOSINOPHILS RELATIVE PERCENT (BEAKER) (test 3 % qlch=644) BASOPHILS RELATIVE PERCENT (BEAKER) (test 0 % uimk=226) NEUTROPHILS ABSOLUTE COUNT (BEAKER) (test 11.70 K/ L 1.80-8.00 xhow=523) LYMPHOCYTES ABSOLUTE COUNT (BEAKER) (test 2.21 K/ L 1.48-4.50 keee=717) MONOCYTES ABSOLUTE COUNT (BEAKER) (test 1.87 K/ L 0.00-1.30 cxef=536) EOSINOPHILS ABSOLUTE COUNT (BEAKER) (test 0.56 K/ L 0.00-0.50 ngol=363) BASOPHILS ABSOLUTE COUNT (BEAKER) (test 0.07 K/ L 0.00-0.20 dsyh=159) 0.00POCT-GLUCOSE [id number] 06:02:00 Test Item Value Reference Range Comments POC-GLUCOSE METER (BEAKER) 126 mg/dL 70-110 TESTED AT [facility] [address] [facility] (test aaau=5563) [facility] [address] POCT-GLUCOSE [id number] 23:23:00 Test Item Value Reference Range Comments POC-GLUCOSE METER (BEAKER) 119 mg/dL 70-110 TESTED AT [address] (test gtzg=2339) [facility] [address] POCT-GLUCOSE [id number] 16:59:00 Test Item Value Reference Range Comments POC-GLUCOSE METER (BEAKER) 109 mg/dL 70-110 TESTED AT [address] (test hglc=2862) [facility] [address] POCT-GLUCOSE [id number] 11:02:00 Test Item Value Reference Range Comments POC-GLUCOSE METER (BEAKER) 116 mg/dL 70-110 TESTED AT [address] (test sght=6556) [facility] [address] CBC W/PLT COUNT & AUTO [id number] 11:00:00 Test Item Value Reference Range Comments WHITE BLOOD CELL COUNT (BEAKER) (test atew=254) 17.7 K/ L 4.0-10.0 RED BLOOD CELL COUNT (BEAKER) (test icpw=750) 4.52 M/ L 4.20-5.80 HEMOGLOBIN (BEAKER) (test jwtj=122) 16.5 GM/DL 13.0-16.8 HEMATOCRIT (BEAKER) (test uxbe=808) 49.1 % 40.0-50.0 MEAN CORPUSCULAR VOLUME (BEAKER) (test vktf=749) 109.0 fL 82.0-98.0 MEAN CORPUSCULAR HEMOGLOBIN (BEAKER) (test 36.4 pg 27.0-33.0 jwau=270) MEAN CORPUSCULAR HEMOGLOBIN CONC (BEAKER) (test 33.6 GM/DL 32.0-36.0 ntnp=527) RED CELL DISTRIBUTION WIDTH (BEAKER) (test 13.5 % 10.3-14.2 adhl=676) PLATELET COUNT (BEAKER) (test brdr=063) 349 K/CU MM 150-430 MEAN PLATELET VOLUME (BEAKER) (test smux=141) 8.3 fL 6.5-10.5 NUCLEATED RED BLOOD CELLS (BEAKER) (test 1 /100 WBC 0-0 dzbn=316) NEUTROPHILS RELATIVE PERCENT (BEAKER) (test 74 % qpnk=064) LYMPHOCYTES RELATIVE PERCENT (BEAKER) (test 13 % wocg=988) MONOCYTES RELATIVE PERCENT (BEAKER) (test 10 % lpsy=518) EOSINOPHILS RELATIVE PERCENT (BEAKER) (test 3 % twhp=810) BASOPHILS RELATIVE PERCENT (BEAKER) (test 0 % tojl=270) NEUTROPHILS ABSOLUTE COUNT (BEAKER) (test 13.00 K/ L 1.80-8.00 jzar=957) LYMPHOCYTES ABSOLUTE COUNT (BEAKER) (test 2.23 K/ L 1.48-4.50 zthe=219) MONOCYTES ABSOLUTE COUNT (BEAKER) (test 1.81 K/ L 0.00-1.30 zoey=069) EOSINOPHILS ABSOLUTE COUNT (BEAKER) (test 0.57 K/ L 0.00-0.50 ssuh=650) BASOPHILS ABSOLUTE COUNT (BEAKER) (test 0.08 K/ L 0.00-0.20 jogs=719) 0.00(MANUAL DIFFERENTIAL)2017-03-18 11:00:00 Test Item Value Reference Range Comments TOTAL COUNTED (BEAKER) (test gaog=6400) WBC MORPHOLOGY (BEAKER) (test fids=805) Normal PLT MORPHOLOGY (BEAKER) (test wubo=150) Normal RBC MORPHOLOGY (BEAKER) (test uvim=710) Normal BASIC METABOLIC [id number] 05:59:00 Test Item Value Reference Range Comments SODIUM (BEAKER) (test 131 meq/L 136-145 nylk=417) POTASSIUM (BEAKER) (test 5.0 meq/L 3.5-5.1 Specimen slightly ppcl=343) hemolyzed CHLORIDE (BEAKER) (test 97 meq/L 98-107 nvih=918) CO2 (BEAKER) (test 20 meq/L 22-29 ysma=594) BLOOD UREA NITROGEN 24 mg/dL 7-21 (BEAKER) (test ehen=021) CREATININE (BEAKER) (test 0.93 mg/dL 0.57-1.25 Specimen slightly fasg=333) hemolyzed GLUCOSE RANDOM (BEAKER) 134 mg/dL 70-105 (test seab=025) CALCIUM (BEAKER) (test 9.7 mg/dL 8.4-10.2 ymuf=574) EGFR (BEAKER) (test 82 mL/min/1.73 sq m ESTIMATED GFR IS NOT gaxf=8310) ACCURATE CREATININE CLEARANCE IN PREDICTING GLOMERULAR FILTRATION RATE. ESTIMATED GFR IS NOT APPLICABLE FOR DIALYSIS PATIENTS. POCT-GLUCOSE [id number] 05:30:00 Test Item Value Reference Range Comments POC-GLUCOSE METER (BEAKER) 134 mg/dL 70-110 TESTED AT [address] (test pxxv=4314) [facility] [address] POCT-GLUCOSE [id number] 00:10:00 Test Item Value Reference Range Comments POC-GLUCOSE METER (BEAKER) 123 mg/dL 70-110 TESTED AT [address] (test jtrx=8416) [place] [id number] POCT-GLUCOSE [id number] 11:47:00 Test Item Value Reference Range Comments POC-GLUCOSE METER (BEAKER) 137 mg/dL 70-110 TESTED AT [address] (test ibhr=2660) [facility] [address] CBC W/PLT COUNT & AUTO [id number] 07:21:00 Test Item Value Reference Range Comments WHITE BLOOD CELL COUNT (BEAKER) (test paxe=408) 17.1 K/ L 4.0-10.0 RED BLOOD CELL COUNT (BEAKER) (test gaoh=280) 4.53 M/ L 4.20-5.80 HEMOGLOBIN (BEAKER) (test cfsf=811) 15.8 GM/DL 13.0-16.8 HEMATOCRIT (BEAKER) (test hvvy=276) 48.6 % 40.0-50.0 MEAN CORPUSCULAR VOLUME (BEAKER) (test tdbt=654) 107.0 fL 82.0-98.0 MEAN CORPUSCULAR HEMOGLOBIN (BEAKER) (test 34.8 pg 27.0-33.0 wxqd=047) MEAN CORPUSCULAR HEMOGLOBIN CONC (BEAKER) (test 32.4 GM/DL 32.0-36.0 orvs=392) RED CELL DISTRIBUTION WIDTH (BEAKER) (test 15.2 % 10.3-14.2 guiy=010) PLATELET COUNT (BEAKER) (test tyjt=824) 323 K/CU MM 150-430 MEAN PLATELET VOLUME (BEAKER) (test wcnz=846) 8.7 fL 6.5-10.5 NUCLEATED RED BLOOD CELLS (BEAKER) (test 0 /100 WBC 0-0 gysh=255) NEUTROPHILS RELATIVE PERCENT (BEAKER) (test 72 % tcxv=928) LYMPHOCYTES RELATIVE PERCENT (BEAKER) (test 14 % ddsa=679) MONOCYTES RELATIVE PERCENT (BEAKER) (test 11 % hksu=281) EOSINOPHILS RELATIVE PERCENT (BEAKER) (test 3 % axar=293) BASOPHILS RELATIVE PERCENT (BEAKER) (test 0 % zkoy=403) NEUTROPHILS ABSOLUTE COUNT (BEAKER) (test 12.30 K/ L 1.80-8.00 iabp=107) LYMPHOCYTES ABSOLUTE COUNT (BEAKER) (test 2.33 K/ L 1.48-4.50 egxj=235) MONOCYTES ABSOLUTE COUNT (BEAKER) (test 1.78 K/ L 0.00-1.30 xqzp=527) EOSINOPHILS ABSOLUTE COUNT (BEAKER) (test 0.52 K/ L 0.00-0.50 lkns=583) BASOPHILS ABSOLUTE COUNT (BEAKER) (test 0.08 K/ L 0.00-0.20 fczx=421) 0.00POCT-GLUCOSE [id number] 06:18:00 Test Item Value Reference Range Comments POC-GLUCOSE METER (BEAKER) 135 mg/dL 70-110 TESTED AT [address] (test taxq=4275) [place] [id number] POCT-GLUCOSE [id number] 00:15:00 Test Item Value Reference Range Comments POC-GLUCOSE METER (BEAKER) 140 mg/dL 70-110 TESTED AT [address] (test tdqe=3822) [place] [id number] POCT-GLUCOSE [id number] 18:18:00 Test Item Value Reference Range Comments POC-GLUCOSE METER (BEAKER) 120 mg/dL 70-110 TESTED AT [address] (test rbmt=8708) [place] [id number] POCT-GLUCOSE [id number] 12:10:00 Test Item Value Reference Range Comments POC-GLUCOSE METER (BEAKER) 108 mg/dL 70-110 TESTED AT [address] (test lnsy=6571) [facility] [address] CBC W/PLT COUNT & AUTO [id number] 07:25:00 Test Item Value Reference Range Comments WHITE BLOOD CELL COUNT (BEAKER) (test pzcm=988) 16.7 K/ L 4.0-10.0 RED BLOOD CELL COUNT (BEAKER) (test dxku=797) 4.34 M/ L 4.20-5.80 HEMOGLOBIN (BEAKER) (test fzea=762) 15.2 GM/DL 13.0-16.8 HEMATOCRIT (BEAKER) (test mjsz=167) 46.8 % 40.0-50.0 MEAN CORPUSCULAR VOLUME (BEAKER) (test rpql=538) 108.0 fL 82.0-98.0 MEAN CORPUSCULAR HEMOGLOBIN (BEAKER) (test 35.0 pg 27.0-33.0 gxcu=197) MEAN CORPUSCULAR HEMOGLOBIN CONC (BEAKER) (test 32.5 GM/DL 32.0-36.0 yzhj=630) RED CELL DISTRIBUTION WIDTH (BEAKER) (test 13.5 % 10.3-14.2 kevx=180) PLATELET COUNT (BEAKER) (test vyfh=802) 353 K/CU MM 150-430 MEAN PLATELET VOLUME (BEAKER) (test twcj=673) 8.5 fL 6.5-10.5 NUCLEATED RED BLOOD CELLS (BEAKER) (test 0 /100 WBC 0-0 kmdp=956) NEUTROPHILS RELATIVE PERCENT (BEAKER) (test 70 % aqkt=450) LYMPHOCYTES RELATIVE PERCENT (BEAKER) (test 16 % kqkt=779) MONOCYTES RELATIVE PERCENT (BEAKER) (test 11 % nbvu=430) EOSINOPHILS RELATIVE PERCENT (BEAKER) (test 3 % bzeq=772) BASOPHILS RELATIVE PERCENT (BEAKER) (test 0 % uuoa=699) NEUTROPHILS ABSOLUTE COUNT (BEAKER) (test 11.70 K/ L 1.80-8.00 wxzf=933) LYMPHOCYTES ABSOLUTE COUNT (BEAKER) (test 2.63 K/ L 1.48-4.50 qmwq=037) MONOCYTES ABSOLUTE COUNT (BEAKER) (test 1.82 K/ L 0.00-1.30 qgdk=458) EOSINOPHILS ABSOLUTE COUNT (BEAKER) (test 0.46 K/ L 0.00-0.50 rrhg=977) BASOPHILS ABSOLUTE COUNT (BEAKER) (test 0.08 K/ L 0.00-0.20 ufpj=510) 0.00POCT-GLUCOSE [id number] 06:09:00 Test Item Value Reference Range Comments POC-GLUCOSE METER (BEAKER) 88 mg/dL 70-110 TESTED AT [address] (test cdrk=6238) [facility] [address] POCT-GLUCOSE [id number] 23:52:00 Test Item Value Reference Range Comments POC-GLUCOSE METER (BEAKER) 122 mg/dL 70-110 TESTED AT [address] (test qjki=0875) [facility] [address] POCT-GLUCOSE [id number] 16:49:00 Test Item Value Reference Range Comments POC-GLUCOSE METER (BEAKER) 106 mg/dL 70-110 TESTED AT [address] (test qbjq=3383) [facility] [address] TISSUE [id number] 14:49:00Surgical Pathology Report Case: [id number] Authorizing Provider: Reji Landis Collected: 03/14/2017 1326 MD Coy OrderingLocation: [address] Received: 2016 1501 Service Pathologist: Ronalod Castillo MD Specimen: Biopsy, Gastric, bx r/o h pylori GASTRIC, BIOPSY- REACTIVE/ CHEMICAL GASTROPATHY (SEE COMMENT)- NO INTESTINAL METAPLASIA, NO DYSPLASIA AND NO MALIGNANCY IDENTIFIED- NO HELICOBACTER PYLORI ORGANISMS IDENTIFIED ON WARTHIN -STARRY STAIN at 2: 49 PMChemical gastropathy may be seen in association with NSAID and other agent usage, bile reflux, healing phase of gastritis and gastric ulcer and due to other etiologies. Clinical correlation is suggested.[id number], [id number], rule out H. Pylori Gastric biopsy Received in formalin labeled "biopsy, gastric " are three fragments measuring 0.8 x 0.6 x 0.1 cmin aggregate. The specimen is entirely submitted in A1. DB/ew Sections reveal fragments of benign antral and corpus type gastric mucosa with fibromuscular hyperplasia within the lamina propria along with mild reactive changes within the glandular epithelium consistent with reactive/chemical gastropathy. No active gastritis is seen. No Helicobacter pylori organisms are identified on H&E and Warthin starry stain. Intestinal metaplasia, dysplasia and malignancy are not seen.POCT- GLUCOSE [id number] 11:31:00 Test Item Value Reference Range Comments POC-GLUCOSE METER (BEAKER) 108 mg/dL 70-110 TESTED AT [address] (test erin=3034) [facility] [address] CBC W/PLT COUNT & AUTO [id number] 05:32:00 Test Item Value Reference Range Comments WHITE BLOOD CELL COUNT (BEAKER) (test fmoj=730) 14.9 K/ L 4.0-10.0 RED BLOOD CELL COUNT (BEAKER) (test qggz=156) 4.81 M/ L 4.20-5.80 HEMOGLOBIN (BEAKER) (test whkp=730) 16.4 GM/DL 13.0-16.8 HEMATOCRIT (BEAKER) (test orys=965) 51.6 % 40.0-50.0 MEAN CORPUSCULAR VOLUME (BEAKER) (test hoqm=417) 107.0 fL 82.0-98.0 MEAN CORPUSCULAR HEMOGLOBIN (BEAKER) (test 34.2 pg 27.0-33.0 zmdw=548) MEAN CORPUSCULAR HEMOGLOBIN CONC (BEAKER) (test 31.9 GM/DL 32.0-36.0 fybi=395) RED CELL DISTRIBUTION WIDTH (BEAKER) (test 15.4 % 10.3-14.2 yaxn=757) PLATELET COUNT (BEAKER) (test vvjf=353) 351 K/CU MM 150-430 MEAN PLATELET VOLUME (BEAKER) (test nfsi=779) 8.5 fL 6.5-10.5 NUCLEATED RED BLOOD CELLS (BEAKER) (test 0 /100 WBC 0-0 ezpe=739) NEUTROPHILS RELATIVE PERCENT (BEAKER) (test 70 % bvva=684) LYMPHOCYTES RELATIVE PERCENT (BEAKER) (test 14 % mihu=739) MONOCYTES RELATIVE PERCENT (BEAKER) (test 13 % xgml=102) EOSINOPHILS RELATIVE PERCENT (BEAKER) (test 3 % yarq=377) BASOPHILS RELATIVE PERCENT (BEAKER) (test 1 % cmxs=420) NEUTROPHILS ABSOLUTE COUNT (BEAKER) (test 10.40 K/ L 1.80-8.00 xdwk=650) LYMPHOCYTES ABSOLUTE COUNT (BEAKER) (test 2.14 K/ L 1.48-4.50 yksu=985) MONOCYTES ABSOLUTE COUNT (BEAKER) (test 1.87 K/ L 0.00-1.30 lize=512) EOSINOPHILS ABSOLUTE COUNT (BEAKER) (test 0.38 K/ L 0.00-0.50 tzok=964) BASOPHILS ABSOLUTE COUNT (BEAKER) (test 0.10 K/ L 0.00-0.20 jqgx=896) 0.00POCT-GLUCOSE [id number] 05:17:00 Test Item Value Reference Range Comments POC-GLUCOSE METER (BEAKER) 108 mg/dL 70-110 TESTED AT [address] (test vvlz=4953) [facility] [address] POCT-GLUCOSE [id number] 00:30:00 Test Item Value Reference Range Comments POC-GLUCOSE METER (BEAKER) 92 mg/dL 70-110 TESTED AT [address] (test gisk=1517) [facility] [address] POCT-GLUCOSE [id number] 17:13:00 Test Item Value Reference Range Comments POC-GLUCOSE METER (BEAKER) 93 mg/dL 70-110 TESTED AT [address] (test oued=9257) [facility] [address] URINALYSIS W/ [id number] 17:04:00 Test Item Value Reference Range Comments COLOR (BEAKER) (test orfi=030) Yellow CLARITY (BEAKER) (test rgtv=570) Clear SPECIFIC GRAVITY UA (BEAKER) (test zoht=959) 1.017 1.001-1.035 PH UA (BEAKER) (test uutk=926) 5.5 5.0-8.0 PROTEIN UA (BEAKER) (test rjed=812) Negative Negative GLUCOSE UA (BEAKER) (test frwm=827) Negative Negative KETONES UA (BEAKER) (test ajof=824) Negative Negative BILIRUBIN UA (BEAKER) (test einp=813) Negative Negative BLOOD UA (BEAKER) (test xgfx=698) Negative Negative NITRITE UA (BEAKER) (test ismr=719) Negative Negative LEUKOCYTE ESTERASE UA (BEAKER) (test ytjg=514) Negative Negative UROBILINOGEN UA (BEAKER) (test kesy=807) 0.2 mg/dL 0.2-1.0 RBC UA (BEAKER) (test fitw=983) < /HPF WBC UA (BEAKER) (test dwse=479) 1 /HPF SOURCE(BEAKER) (test bxnu=9645) Urine, Voided POCT-GLUCOSE [id number] 11:17:00 Test Item Value Reference Range Comments POC-GLUCOSE METER (BEAKER) 91 mg/dL 70-110 TESTED AT [address] (test aopk=1401) [facility] [address] POCT-GLUCOSE [id number] 05:38:00 Test Item Value Reference Range Comments POC-GLUCOSE METER (BEAKER) 78 mg/dL 70-110 TESTED AT [facility] [address] (test ehsp=2555) [place] [address] PROTHROMBIN [id number] 04:55:00 Test Item Value Reference Range Comments PROTIME (BEAKER) (test numv=400) 13.8 seconds 11.7-14.7 INR (BEAKER) (test eyof=953) 1.1 <=5.9 RECOMMENDED COUMADIN/WARFARIN INR THERAPY RANGESSTANDARD DOSE: 2.0 - 3.0 Includes: PROPHYLAXIS forvenous thrombosis, systemic embolization; TREATMENT for venous thrombosis and/or pulmonary embolus.HIGH RISK: Target INR is 2.5-3.5 for patients with mechanical heart valves.CBC W/PLT COUNT & AUTO [id number] 04:44:00 Test Item Value Reference Range Comments WHITE BLOOD CELL COUNT (BEAKER) (test glol=753) 15.4 K/ L 4.0-10.0 RED BLOOD CELL COUNT (BEAKER) (test vshe=505) 4.57 M/ L 4.20-5.80 HEMOGLOBIN (BEAKER) (test pgfg=863) 15.9 GM/DL 13.0-16.8 HEMATOCRIT (BEAKER) (test tdef=886) 48.6 % 40.0-50.0 MEAN CORPUSCULAR VOLUME (BEAKER) (test ibcz=060) 106.0 fL 82.0-98.0 MEAN CORPUSCULAR HEMOGLOBIN (BEAKER) (test 34.8 pg 27.0-33.0 zexq=973) MEAN CORPUSCULAR HEMOGLOBIN CONC (BEAKER) (test 32.7 GM/DL 32.0-36.0 mufp=046) RED CELL DISTRIBUTION WIDTH (BEAKER) (test 15.2 % 10.3-14.2 ffyi=590) PLATELET COUNT (BEAKER) (test leyj=282) 342 K/CU MM 150-430 MEAN PLATELET VOLUME (BEAKER) (test rwvv=840) 8.6 fL 6.5-10.5 NUCLEATED RED BLOOD CELLS (BEAKER) (test 0 /100 WBC 0-0 jvrn=440) NEUTROPHILS RELATIVE PERCENT (BEAKER) (test 70 % vmis=129) LYMPHOCYTES RELATIVE PERCENT (BEAKER) (test 15 % ssnl=420) MONOCYTES RELATIVE PERCENT (BEAKER) (test 13 % qkdl=626) EOSINOPHILS RELATIVE PERCENT (BEAKER) (test 2 % ojcw=745) BASOPHILS RELATIVE PERCENT (BEAKER) (test 0 % cyxk=618) NEUTROPHILS ABSOLUTE COUNT (BEAKER) (test 10.80 K/ L 1.80-8.00 opwk=019) LYMPHOCYTES ABSOLUTE COUNT (BEAKER) (test 2.27 K/ L 1.48-4.50 yapn=972) MONOCYTES ABSOLUTE COUNT (BEAKER) (test 2.03 K/ L 0.00-1.30 hiuw=133) EOSINOPHILS ABSOLUTE COUNT (BEAKER) (test 0.30 K/ L 0.00-0.50 bwpg=651) BASOPHILS ABSOLUTE COUNT (BEAKER) (test 0.04 K/ L 0.00-0.20 ujtc=002) 0.00POCT-GLUCOSE [id number] 23:47:00 Test Item Value Reference Range Comments POC-GLUCOSE METER (BEAKER) 98 mg/dL 70-110 TESTED AT [address] (test cwhy=9284) [place] [id number] POCT-GLUCOSE [id number] 18:17:00 Test Item Value Reference Range Comments POC-GLUCOSE METER (BEAKER) 87 mg/dL 70-110 TESTED AT [address] (test ahkn=4062) [place] [id number] POCT-GLUCOSE [id number] 11:25:00 Test Item Value Reference Range Comments POC-GLUCOSE METER (BEAKER) 102 mg/dL 70-110 TESTED AT [address] (test rzhy=0363) [place] [id number] BASIC METABOLIC [id number] 09:15:00 Test Item Value Reference Range Comments SODIUM (BEAKER) (test 133 meq/L 136-145 odte=812) POTASSIUM (BEAKER) (test 5.2 meq/L 3.5-5.1 usaj=156) CHLORIDE (BEAKER) (test 94 meq/L 98-107 yymf=738) CO2 (BEAKER) (test 27 meq/L 22-29 twbr=066) BLOOD UREA NITROGEN 27 mg/dL 7-21 (BEAKER) (test ubyt=821) CREATININE (BEAKER) (test 1.15 mg/dL 0.57-1.25 kzwk=692) GLUCOSE RANDOM (BEAKER) 103 mg/dL 70-105 (test xplh=665) CALCIUM (BEAKER) (test 10.1 mg/dL 8.4-10.2 frab=318) EGFR (BEAKER) (test 64 mL/min/1.73 sq m ESTIMATED GFR IS NOT alvl=1690) ACCURATE CREATININE CLEARANCE IN PREDICTING GLOMERULAR FILTRATION RATE. ESTIMATED GFR IS NOT APPLICABLE FOR DIALYSIS PATIENTS. CBC W/PLT COUNT & AUTO [id number] 07:30:00 Test Item Value Reference Range Comments WHITE BLOOD CELL COUNT (BEAKER) (test emdx=008) 18.2 K/ L 4.0-10.0 RED BLOOD CELL COUNT (BEAKER) (test jlwt=599) 4.51 M/ L 4.20-5.80 HEMOGLOBIN (BEAKER) (test zmgu=077) 16.1 GM/DL 13.0-16.8 HEMATOCRIT (BEAKER) (test fvdr=354) 48.6 % 40.0-50.0 MEAN CORPUSCULAR VOLUME (BEAKER) (test hfzu=306) 108.0 fL 82.0-98.0 MEAN CORPUSCULAR HEMOGLOBIN (BEAKER) (test 35.6 pg 27.0-33.0 xeeg=243) MEAN CORPUSCULAR HEMOGLOBIN CONC (BEAKER) (test 33.1 GM/DL 32.0-36.0 lepe=164) RED CELL DISTRIBUTION WIDTH (BEAKER) (test 13.8 % 10.3-14.2 mmcm=507) PLATELET COUNT (BEAKER) (test kdnp=500) 345 K/CU MM 150-430 MEAN PLATELET VOLUME (BEAKER) (test ohth=856) 8.8 fL 6.5-10.5 NUCLEATED RED BLOOD CELLS (BEAKER) (test 0 /100 WBC 0-0 rghe=963) NEUTROPHILS RELATIVE PERCENT (BEAKER) (test 71 % uamj=422) LYMPHOCYTES RELATIVE PERCENT (BEAKER) (test 14 % iuqg=663) MONOCYTES RELATIVE PERCENT (BEAKER) (test 13 % hmip=014) EOSINOPHILS RELATIVE PERCENT (BEAKER) (test 2 % ovqd=556) BASOPHILS RELATIVE PERCENT (BEAKER) (test 0 % wuwv=852) NEUTROPHILS ABSOLUTE COUNT (BEAKER) (test 13.00 K/ L 1.80-8.00 wsvj=452) LYMPHOCYTES ABSOLUTE COUNT (BEAKER) (test 2.50 K/ L 1.48-4.50 ojub=350) MONOCYTES ABSOLUTE COUNT (BEAKER) (test 2.35 K/ L 0.00-1.30 ejlp=525) EOSINOPHILS ABSOLUTE COUNT (BEAKER) (test 0.32 K/ L 0.00-0.50 rdkz=774) BASOPHILS ABSOLUTE COUNT (BEAKER) (test 0.05 K/ L 0.00-0.20 wevk=050) 0.00POCT-GLUCOSE [id number] 05:27:00 Test Item Value Reference Range Comments POC-GLUCOSE METER (BEAKER) 107 mg/dL 70-110 TESTED AT [address] (test ivkx=2391) [place] [id number] POCT-GLUCOSE [id number] 23:32:00 Test Item Value Reference Range Comments POC-GLUCOSE METER (BEAKER) 121 mg/dL 70-110 TESTED AT [address] (test ofmz=7210) [place] [id number] URINALYSIS W/ [id number] 18:27:00 Test Item Value Reference Range Comments COLOR (BEAKER) (test zrkl=641) Yellow CLARITY (BEAKER) (test yzpa=750) Clear SPECIFIC GRAVITY UA (BEAKER) (test rjhj=771) 1.016 1.001-1.035 PH UA (BEAKER) (test urnl=768) 6.5 5.0-8.0 PROTEIN UA (BEAKER) (test tbnj=652) Negative Negative GLUCOSE UA (BEAKER) (test timv=062) Negative Negative KETONES UA (BEAKER) (test xker=988) Negative Negative BILIRUBIN UA (BEAKER) (test gjdy=308) Negative Negative BLOOD UA (BEAKER) (test smqo=845) Negative Negative NITRITE UA (BEAKER) (test kuts=859) Negative Negative LEUKOCYTE ESTERASE UA (BEAKER) (test czmb=766) Negative Negative UROBILINOGEN UA (BEAKER) (test vmsj=739) 0.2 mg/dL 0.2-1.0 RBC UA (BEAKER) (test ztwp=220) 0 /HPF WBC UA (BEAKER) (test vyml=156) 1 /HPF SOURCE(BEAKER) (test aaem=4402) Urine, Voided POCT-GLUCOSE [id number] 17:36:00 Test Item Value Reference Range Comments POC-GLUCOSE METER (BEAKER) 135 mg/dL 70-110 TESTED AT [facility] [address] [facility] (test kqlq=0127) [facility] [address] POCT-GLUCOSE [id number] 12:25:00 Test Item Value Reference Range Comments POC-GLUCOSE METER (BEAKER) 118 mg/dL 70-110 TESTED AT [facility] [address] [facility] (test zlgn=3831) [facility] [id number] CBC W/PLT COUNT & AUTO [id number] 07:14:00 Test Item Value Reference Range Comments WHITE BLOOD CELL COUNT (BEAKER) (test unvh=671) 17.4 K/ L 4.0-10.0 RED BLOOD CELL COUNT (BEAKER) (test qwba=789) 4.54 M/ L 4.20-5.80 HEMOGLOBIN (BEAKER) (test wunn=431) 15.5 GM/DL 13.0-16.8 HEMATOCRIT (BEAKER) (test dwbm=049) 48.7 % 40.0-50.0 MEAN CORPUSCULAR VOLUME (BEAKER) (test vbsy=797) 107.0 fL 82.0-98.0 MEAN CORPUSCULAR HEMOGLOBIN (BEAKER) (test 34.0 pg 27.0-33.0 gjap=760) MEAN CORPUSCULAR HEMOGLOBIN CONC (BEAKER) (test 31.8 GM/DL 32.0-36.0 tmmg=973) RED CELL DISTRIBUTION WIDTH (BEAKER) (test 15.3 % 10.3-14.2 nhzd=239) PLATELET COUNT (BEAKER) (test isog=770) 324 K/CU MM 150-430 MEAN PLATELET VOLUME (BEAKER) (test ykxv=576) 8.8 fL 6.5-10.5 NUCLEATED RED BLOOD CELLS (BEAKER) (test 0 /100 WBC 0-0 sjtk=496) NEUTROPHILS RELATIVE PERCENT (BEAKER) (test 69 % hjrh=681) LYMPHOCYTES RELATIVE PERCENT (BEAKER) (test 15 % cszg=371) MONOCYTES RELATIVE PERCENT (BEAKER) (test 14 % hsgv=099) EOSINOPHILS RELATIVE PERCENT (BEAKER) (test 2 % saom=990) BASOPHILS RELATIVE PERCENT (BEAKER) (test 0 % mpyu=641) NEUTROPHILS ABSOLUTE COUNT (BEAKER) (test 12.10 K/ L 1.80-8.00 qkvc=745) LYMPHOCYTES ABSOLUTE COUNT (BEAKER) (test 2.56 K/ L 1.48-4.50 wtjq=845) MONOCYTES ABSOLUTE COUNT (BEAKER) (test 2.37 K/ L 0.00-1.30 evjy=910) EOSINOPHILS ABSOLUTE COUNT (BEAKER) (test 0.35 K/ L 0.00-0.50 zdje=215) BASOPHILS ABSOLUTE COUNT (BEAKER) (test 0.08 K/ L 0.00-0.20 xwaf=063) 0.00PROTHROMBIN [id number] 06:40:00 Test Item Value Reference Range Comments PROTIME (BEAKER) (test vxna=104) 13.5 seconds 11.7-14.7 INR (BEAKER) (test jlrr=953) 1.0 <=5.9 RECOMMENDED COUMADIN/WARFARIN INR THERAPY RANGESSTANDARD DOSE: 2.0 - 3.0 Includes: PROPHYLAXIS forvenous thrombosis, systemic embolization; TREATMENT for venous thrombosis and/or pulmonary embolus.HIGH RISK: Target INR is 2.5-3.5 for patients with mechanical heart valves.POCT-GLUCOSE [id number] 06:25:00 Test Item Value Reference Range Comments POC-GLUCOSE METER (BEAKER) 93 mg/dL 70-110 TESTED AT [address] (test kxpq=1116) [place] [address] POCT-GLUCOSE [id number] 23:57:00 Test Item Value Reference Range Comments POC-GLUCOSE METER (BEAKER) 98 mg/dL 70-110 TESTED AT [address] (test itsl=9705) [place] [id number] POCT-GLUCOSE [id number] 17:41:00 Test Item Value Reference Range Comments POC-GLUCOSE METER (BEAKER) 95 mg/dL 70-110 TESTED AT [address] (test ruab=2878) [place] [address] POCT-GLUCOSE [id number] 15:26:00 Test Item Value Reference Range Comments POC-GLUCOSE METER (BEAKER) 125 mg/dL 70-110 TESTED AT [address] (test ualj=1857) [place] [address] CBC W/PLT COUNT & AUTO [id number] 09:36:00 Test Item Value Reference Range Comments WHITE BLOOD CELL COUNT (BEAKER) (test dndw=279) 15.6 K/ L 4.0-10.0 RED BLOOD CELL COUNT (BEAKER) (test jxvq=134) 4.45 M/ L 4.20-5.80 HEMOGLOBIN (BEAKER) (test lxyn=701) 15.5 GM/DL 13.0-16.8 HEMATOCRIT (BEAKER) (test ifsc=696) 47.7 % 40.0-50.0 MEAN CORPUSCULAR VOLUME (BEAKER) (test jabf=270) 107.0 fL 82.0-98.0 MEAN CORPUSCULAR HEMOGLOBIN (BEAKER) (test 34.8 pg 27.0-33.0 inbl=497) MEAN CORPUSCULAR HEMOGLOBIN CONC (BEAKER) (test 32.4 GM/DL 32.0-36.0 qgew=562) RED CELL DISTRIBUTION WIDTH (BEAKER) (test 15.3 % 10.3-14.2 hlrf=678) PLATELET COUNT (BEAKER) (test yogk=598) 291 K/CU MM 150-430 MEAN PLATELET VOLUME (BEAKER) (test ulzo=565) 8.9 fL 6.5-10.5 NUCLEATED RED BLOOD CELLS (BEAKER) (test 0 /100 WBC 0-0 zesj=002) NEUTROPHILS RELATIVE PERCENT (BEAKER) (test 69 % bzlo=529) LYMPHOCYTES RELATIVE PERCENT (BEAKER) (test 15 % lkjq=547) MONOCYTES RELATIVE PERCENT (BEAKER) (test 14 % qiij=814) EOSINOPHILS RELATIVE PERCENT (BEAKER) (test 2 % orqa=035) BASOPHILS RELATIVE PERCENT (BEAKER) (test 1 % snma=204) NEUTROPHILS ABSOLUTE COUNT (BEAKER) (test 10.80 K/ L 1.80-8.00 gflq=851) LYMPHOCYTES ABSOLUTE COUNT (BEAKER) (test 2.27 K/ L 1.48-4.50 kixv=427) MONOCYTES ABSOLUTE COUNT (BEAKER) (test 2.16 K/ L 0.00-1.30 blru=715) EOSINOPHILS ABSOLUTE COUNT (BEAKER) (test 0.28 K/ L 0.00-0.50 luvn=241) BASOPHILS ABSOLUTE COUNT (BEAKER) (test 0.09 K/ L 0.00-0.20 avbj=261) 0.00POCT-GLUCOSE [id number] 06:35:00 Test Item Value Reference Range Comments POC-GLUCOSE METER (BEAKER) 132 mg/dL 70-110 TESTED AT [address] (test xkzx=4791) [facility] [address] POCT-GLUCOSE [id number] 06:32:00 Test Item Value Reference Range Comments POC-GLUCOSE METER (BEAKER) 120 mg/dL 70-110 TESTED AT [address] (test tjlz=0900) [facility] [address] POCT-GLUCOSE [id number] 05:58:00 Test Item Value Reference Range Comments POC-GLUCOSE METER (BEAKER) 107 mg/dL 70-110 TESTED AT [address] (test cmud=4874) [facility] [address] POCT-GLUCOSE [id number] 05:32:00 Test Item Value Reference Range Comments POC-GLUCOSE METER (BEAKER) 140 mg/dL 70-110 TESTED AT [address] (test iruc=3910) [place] [id number] POCT-GLUCOSE [id number] 05:23:00 Test Item Value Reference Range Comments POC-GLUCOSE METER (BEAKER) 159 mg/dL 70-110 TESTED AT [address] (test plic=6224) [facility] [address] POCT-GLUCOSE [id number] 05:08:00 Test Item Value Reference Range Comments POC-GLUCOSE METER (BEAKER) 140 mg/dL 70-110 TESTED AT [address] (test bnrq=4660) [facility] [address] POCT-GLUCOSE [id number] 04:59:00 Test Item Value Reference Range Comments POC-GLUCOSE METER (BEAKER) 107 mg/dL 70-110 TESTED AT [address] (test hgkk=5739) [facility] [address] POCT-GLUCOSE [id number] 04:52:00 Test Item Value Reference Range Comments POC-GLUCOSE METER (BEAKER) 118 mg/dL 70-110 TESTED AT [address] (test tbfd=3102) [place] [id number] CBC W/PLT COUNT & AUTO [id number] 08:00:00 Test Item Value Reference Range Comments WHITE BLOOD CELL COUNT (BEAKER) (test bcqc=312) 14.0 K/ L 4.0-10.0 RED BLOOD CELL COUNT (BEAKER) (test dnuh=715) 4.61 M/ L 4.20-5.80 HEMOGLOBIN (BEAKER) (test imps=824) 16.0 GM/DL 13.0-16.8 HEMATOCRIT (BEAKER) (test omql=351) 50.3 % 40.0-50.0 MEAN CORPUSCULAR VOLUME (BEAKER) (test yvzb=024) 109.0 fL 82.0-98.0 MEAN CORPUSCULAR HEMOGLOBIN (BEAKER) (test 34.7 pg 27.0-33.0 fxpy=998) MEAN CORPUSCULAR HEMOGLOBIN CONC (BEAKER) (test 31.8 GM/DL 32.0-36.0 vndm=434) RED CELL DISTRIBUTION WIDTH (BEAKER) (test 13.8 % 10.3-14.2 kvvs=700) PLATELET COUNT (BEAKER) (test tzsd=776) 252 K/CU MM 150-430 MEAN PLATELET VOLUME (BEAKER) (test ylaa=090) 9.0 fL 6.5-10.5 NUCLEATED RED BLOOD CELLS (BEAKER) (test 0 /100 WBC 0-0 nipw=322) NEUTROPHILS RELATIVE PERCENT (BEAKER) (test 69 % xvak=709) LYMPHOCYTES RELATIVE PERCENT (BEAKER) (test 13 % ascx=616) MONOCYTES RELATIVE PERCENT (BEAKER) (test 15 % lbai=749) EOSINOPHILS RELATIVE PERCENT (BEAKER) (test 3 % teoa=816) BASOPHILS RELATIVE PERCENT (BEAKER) (test 0 % avvl=240) NEUTROPHILS ABSOLUTE COUNT (BEAKER) (test 9.56 K/ L 1.80-8.00 tatq=117) LYMPHOCYTES ABSOLUTE COUNT (BEAKER) (test 1.84 K/ L 1.48-4.50 fhnt=611) MONOCYTES ABSOLUTE COUNT (BEAKER) (test 2.13 K/ L 0.00-1.30 bpyx=391) EOSINOPHILS ABSOLUTE COUNT (BEAKER) (test 0.39 K/ L 0.00-0.50 zyyh=525) BASOPHILS ABSOLUTE COUNT (BEAKER) (test 0.03 K/ L 0.00-0.20 rosb=097) CBC W/PLT COUNT & AUTO [id number] 10:07:00 Test Item Value Reference Range Comments WHITE BLOOD CELL COUNT (BEAKER) (test vlkb=199) 11.8 K/ L 4.0-10.0 RED BLOOD CELL COUNT (BEAKER) (test iyhp=418) 4.33 M/ L 4.20-5.80 HEMOGLOBIN (BEAKER) (test sdjh=198) 15.8 GM/DL 13.0-16.8 HEMATOCRIT (BEAKER) (test ampe=942) 47.4 % 40.0-50.0 MEAN CORPUSCULAR VOLUME (BEAKER) (test qmrn=496) 109.0 fL 82.0-98.0 MEAN CORPUSCULAR HEMOGLOBIN (BEAKER) (test 36.5 pg 27.0-33.0 qofw=502) MEAN CORPUSCULAR HEMOGLOBIN CONC (BEAKER) (test 33.3 GM/DL 32.0-36.0 sios=047) RED CELL DISTRIBUTION WIDTH (BEAKER) (test 13.7 % 10.3-14.2 xazj=743) PLATELET COUNT (BEAKER) (test hrhp=586) 204 K/CU MM 150-430 MEAN PLATELET VOLUME (BEAKER) (test omvt=528) 9.1 fL 6.5-10.5 NUCLEATED RED BLOOD CELLS (BEAKER) (test 0 /100 WBC 0-0 puah=327) NEUTROPHILS RELATIVE PERCENT (BEAKER) (test 61 % rowt=117) LYMPHOCYTES RELATIVE PERCENT (BEAKER) (test 17 % tzuz=166) MONOCYTES RELATIVE PERCENT (BEAKER) (test 20 % doig=854) EOSINOPHILS RELATIVE PERCENT (BEAKER) (test 2 % fhyc=167) BASOPHILS RELATIVE PERCENT (BEAKER) (test 1 % ejwf=112) NEUTROPHILS ABSOLUTE COUNT (BEAKER) (test 7.21 K/ L 1.80-8.00 tgur=867) LYMPHOCYTES ABSOLUTE COUNT (BEAKER) (test 1.97 K/ L 1.48-4.50 hwmc=285) MONOCYTES ABSOLUTE COUNT (BEAKER) (test 2.31 K/ L 0.00-1.30 swsz=001) EOSINOPHILS ABSOLUTE COUNT (BEAKER) (test 0.28 K/ L 0.00-0.50 obze=321) BASOPHILS ABSOLUTE COUNT (BEAKER) (test 0.07 K/ L 0.00-0.20 yqla=416) POCT-GLUCOSE [id number] 05:43:00 Test Item Value Reference Range Comments POC-GLUCOSE METER (BEAKER) 129 mg/dL 70-110 TESTED AT [address] (test ijwz=3897) [facility] [address] POCT-GLUCOSE [id number] 23:48:00 Test Item Value Reference Range Comments POC-GLUCOSE METER (BEAKER) 112 mg/dL 70-110 TESTED AT [address] (test pvok=2948) [facility] [address] POCT-GLUCOSE [id number] 16:38:00 Test Item Value Reference Range Comments POC-GLUCOSE METER (BEAKER) 102 mg/dL 70-110 TESTED AT [address] (test ugin=8617) [facility] [address] POCT-GLUCOSE [id number] 11:20:00 Test Item Value Reference Range Comments POC-GLUCOSE METER (BEAKER) 114 mg/dL 70-110 TESTED AT [address] (test cnsi=5265) [facility] [address] CBC W/PLT COUNT & AUTO [id number] 07:23:00 Test Item Value Reference Range Comments WHITE BLOOD CELL COUNT (BEAKER) (test phou=726) 12.8 K/ L 4.0-10.0 RED BLOOD CELL COUNT (BEAKER) (test evzy=171) 4.78 M/ L 4.20-5.80 HEMOGLOBIN (BEAKER) (test frea=659) 15.7 GM/DL 13.0-16.8 HEMATOCRIT (BEAKER) (test gock=642) 52.1 % 40.0-50.0 MEAN CORPUSCULAR VOLUME (BEAKER) (test estv=434) 109.0 fL 82.0-98.0 MEAN CORPUSCULAR HEMOGLOBIN (BEAKER) (test 32.8 pg 27.0-33.0 fdym=534) MEAN CORPUSCULAR HEMOGLOBIN CONC (BEAKER) (test 30.1 GM/DL 32.0-36.0 nadx=898) RED CELL DISTRIBUTION WIDTH (BEAKER) (test 13.6 % 10.3-14.2 pohy=869) PLATELET COUNT (BEAKER) (test gpqm=230) 194 K/CU MM 150-430 MEAN PLATELET VOLUME (BEAKER) (test cyww=528) 9.5 fL 6.5-10.5 NUCLEATED RED BLOOD CELLS (BEAKER) (test 0 /100 WBC 0-0 mlhc=889) NEUTROPHILS RELATIVE PERCENT (BEAKER) (test 68 % laxt=727) LYMPHOCYTES RELATIVE PERCENT (BEAKER) (test 13 % yoro=492) MONOCYTES RELATIVE PERCENT (BEAKER) (test 17 % nrmq=978) EOSINOPHILS RELATIVE PERCENT (BEAKER) (test 2 % mbkt=431) BASOPHILS RELATIVE PERCENT (BEAKER) (test 0 % jxil=330) NEUTROPHILS ABSOLUTE COUNT (BEAKER) (test 8.68 K/ L 1.80-8.00 ufrx=284) LYMPHOCYTES ABSOLUTE COUNT (BEAKER) (test 1.67 K/ L 1.48-4.50 nzdr=439) MONOCYTES ABSOLUTE COUNT (BEAKER) (test 2.19 K/ L 0.00-1.30 arbu=239) EOSINOPHILS ABSOLUTE COUNT (BEAKER) (test 0.26 K/ L 0.00-0.50 ayzn=370) BASOPHILS ABSOLUTE COUNT (BEAKER) (test 0.04 K/ L 0.00-0.20 etwb=975) 0.00POCT-GLUCOSE [id number] 06:34:00 Test Item Value Reference Range Comments POC-GLUCOSE METER (BEAKER) 135 mg/dL 70-110 TESTED AT [address] (test bujf=4615) [place] [address] URIC [id number] 06:34:00 Test Item Value Reference Range Comments URIC ACID (BEAKER) (test 7.2 mg/dL 2.6-7.2 Specimen slightly hemolyzed zydx=160) POCT-GLUCOSE [id number] 03:44:00 Test Item Value Reference Range Comments POC-GLUCOSE METER (BEAKER) 116 mg/dL 70-110 TESTED AT [address] (test epkk=7245) [place] [id number] POCT-GLUCOSE [id number] 18:10:00 Test Item Value Reference Range Comments POC-GLUCOSE METER (BEAKER) 78 mg/dL 70-110 TESTED AT [address] (test lfro=8025) [place] [id number] POCT-GLUCOSE [id number] 11:11:00 Test Item Value Reference Range Comments POC-GLUCOSE METER (BEAKER) 110 mg/dL 70-110 TESTED AT [address] (test oddh=8536) [place] [address] POCT-GLUCOSE [id number] 06:47:00 Test Item Value Reference Range Comments POC-GLUCOSE METER (BEAKER) 135 mg/dL 70-110 [facility]ED AT [facility] [address] [facility] (test fkxh=9121) [facility] [address] CBC W/PLT COUNT & AUTO [id number] 05:46:00 Test Item Value Reference Range Comments WHITE BLOOD CELL COUNT (BEAKER) (test ipey=309) 11.9 K/ L 4.0-10.0 RED BLOOD CELL COUNT (BEAKER) (test zckk=146) 4.27 M/ L 4.20-5.80 HEMOGLOBIN (BEAKER) (test spch=456) 15.3 GM/DL 13.0-16.8 HEMATOCRIT (BEAKER) (test mddo=530) 46.9 % 40.0-50.0 MEAN CORPUSCULAR VOLUME (BEAKER) (test fflo=925) 110.0 fL 82.0-98.0 MEAN CORPUSCULAR HEMOGLOBIN (BEAKER) (test 35.8 pg 27.0-33.0 mmkq=035) MEAN CORPUSCULAR HEMOGLOBIN CONC (BEAKER) (test 32.6 GM/DL 32.0-36.0 jhff=678) RED CELL DISTRIBUTION WIDTH (BEAKER) (test 13.6 % 10.3-14.2 kxzd=811) PLATELET COUNT (BEAKER) (test qxkj=857) 159 K/CU MM 150-430 MEAN PLATELET VOLUME (BEAKER) (test yune=221) 9.1 fL 6.5-10.5 NUCLEATED RED BLOOD CELLS (BEAKER) (test 0 /100 WBC 0-0 oqox=043) NEUTROPHILS RELATIVE PERCENT (BEAKER) (test 64 % ansk=529) LYMPHOCYTES RELATIVE PERCENT (BEAKER) (test 16 % jgss=203) MONOCYTES RELATIVE PERCENT (BEAKER) (test 17 % xlac=419) EOSINOPHILS RELATIVE PERCENT (BEAKER) (test 3 % ieaa=565) BASOPHILS RELATIVE PERCENT (BEAKER) (test 0 % ryoc=924) NEUTROPHILS ABSOLUTE COUNT (BEAKER) (test 7.61 K/ L 1.80-8.00 opey=743) LYMPHOCYTES ABSOLUTE COUNT (BEAKER) (test 1.89 K/ L 1.48-4.50 yenz=361) MONOCYTES ABSOLUTE COUNT (BEAKER) (test 2.00 K/ L 0.00-1.30 ngxs=972) EOSINOPHILS ABSOLUTE COUNT (BEAKER) (test 0.39 K/ L 0.00-0.50 gaun=839) BASOPHILS ABSOLUTE COUNT (BEAKER) (test 0.06 K/ L 0.00-0.20 fzki=228) 0.00POCT-GLUCOSE [id number] 17:59:00 Test Item Value Reference Range Comments POC-GLUCOSE METER (BEAKER) 107 mg/dL 70-110 TESTED AT [address] (test trrp=1903) [facility] [address] POCT-GLUCOSE [id number] 11:57:00 Test Item Value Reference Range Comments POC-GLUCOSE METER (BEAKER) 107 mg/dL 70-110 TESTED AT [address] (test deca=8279) [place] [id number] CBC W/PLT COUNT & AUTO [id number] 07:14:00 Test Item Value Reference Range Comments WHITE BLOOD CELL COUNT (BEAKER) (test gsal=241) 11.6 K/ L 4.0-10.0 RED BLOOD CELL COUNT (BEAKER) (test vwxc=966) 4.45 M/ L 4.20-5.80 HEMOGLOBIN (BEAKER) (test ubdl=707) 15.5 GM/DL 13.0-16.8 HEMATOCRIT (BEAKER) (test ypas=159) 48.8 % 40.0-50.0 MEAN CORPUSCULAR VOLUME (BEAKER) (test zpfq=177) 110.0 fL 82.0-98.0 MEAN CORPUSCULAR HEMOGLOBIN (BEAKER) (test 34.9 pg 27.0-33.0 lcol=719) MEAN CORPUSCULAR HEMOGLOBIN CONC (BEAKER) (test 31.8 GM/DL 32.0-36.0 zbfs=985) RED CELL DISTRIBUTION WIDTH (BEAKER) (test 13.7 % 10.3-14.2 bxtl=207) PLATELET COUNT (BEAKER) (test cirz=199) 141 K/CU MM 150-430 MEAN PLATELET VOLUME (BEAKER) (test zoij=931) 9.2 fL 6.5-10.5 NUCLEATED RED BLOOD CELLS (BEAKER) (test 0 /100 WBC 0-0 fjkq=935) NEUTROPHILS RELATIVE PERCENT (BEAKER) (test 68 % imib=046) LYMPHOCYTES RELATIVE PERCENT (BEAKER) (test 14 % nhtm=610) MONOCYTES RELATIVE PERCENT (BEAKER) (test 16 % fmvv=118) EOSINOPHILS RELATIVE PERCENT (BEAKER) (test 3 % pxuo=268) BASOPHILS RELATIVE PERCENT (BEAKER) (test 0 % nfjs=933) NEUTROPHILS ABSOLUTE COUNT (BEAKER) (test 7.84 K/ L 1.80-8.00 yshk=553) LYMPHOCYTES ABSOLUTE COUNT (BEAKER) (test 1.58 K/ L 1.48-4.50 yizi=517) MONOCYTES ABSOLUTE COUNT (BEAKER) (test 1.81 K/ L 0.00-1.30 qkic=247) EOSINOPHILS ABSOLUTE COUNT (BEAKER) (test 0.33 K/ L 0.00-0.50 eyuj=378) BASOPHILS ABSOLUTE COUNT (BEAKER) (test 0.03 K/ L 0.00-0.20 rlcy=175) 0.00POCT-GLUCOSE [id number] 06:54:00 Test Item Value Reference Range Comments POC-GLUCOSE METER (BEAKER) 145 mg/dL 70-110 TESTED AT [address] (test yyqt=7812) [facility] [address] BASIC METABOLIC [id number] 06:48:00 Test Item Value Reference Range Comments SODIUM (BEAKER) (test 136 meq/L 136-145 xciu=581) POTASSIUM (BEAKER) (test 3.9 meq/L 3.5-5.1 yanu=822) CHLORIDE (BEAKER) (test 101 meq/L 98-107 adsv=732) CO2 (BEAKER) (test 25 meq/L 22-29 eqgl=024) BLOOD UREA NITROGEN 15 mg/dL 7-21 (BEAKER) (test mhos=430) CREATININE (BEAKER) (test 0.93 mg/dL 0.57-1.25 oivu=107) GLUCOSE RANDOM (BEAKER) 130 mg/dL 70-105 (test xjsg=233) CALCIUM (BEAKER) (test 9.0 mg/dL 8.4-10.2 yivy=415) EGFR (BEAKER) (test 82 mL/min/1.73 sq m ESTIMATED GFR IS NOT jdks=6045) ACCURATE CREATININE CLEARANCE IN PREDICTING GLOMERULAR FILTRATION RATE. ESTIMATED GFR IS NOT APPLICABLE FOR DIALYSIS PATIENTS. POCT-GLUCOSE [id number] 23:54:00 Test Item Value Reference Range Comments POC-GLUCOSE METER (BEAKER) 114 mg/dL 70-110 TESTED AT [facility] [address] (test pdvr=0064) [place] [address] CBC W/PLT COUNT & AUTO [id number] 04:18:00 Test Item Value Reference Range Comments WHITE BLOOD CELL COUNT (BEAKER) (test jvqv=267) 12.0 K/ L 4.0-10.0 RED BLOOD CELL COUNT (BEAKER) (test bddm=000) 4.35 M/ L 4.20-5.80 HEMOGLOBIN (BEAKER) (test nfrb=003) 15.5 GM/DL 13.0-16.8 HEMATOCRIT (BEAKER) (test vhaw=669) 47.2 % 40.0-50.0 MEAN CORPUSCULAR VOLUME (BEAKER) (test usbr=834) 109.0 fL 82.0-98.0 MEAN CORPUSCULAR HEMOGLOBIN (BEAKER) (test 35.6 pg 27.0-33.0 pppi=782) MEAN CORPUSCULAR HEMOGLOBIN CONC (BEAKER) (test 32.8 GM/DL 32.0-36.0 frsb=189) RED CELL DISTRIBUTION WIDTH (BEAKER) (test 15.6 % 10.3-14.2 zqib=076) PLATELET COUNT (BEAKER) (test yvpu=886) 117 K/CU MM 150-430 MEAN PLATELET VOLUME (BEAKER) (test ukdv=313) 9.3 fL 6.5-10.5 NUCLEATED RED BLOOD CELLS (BEAKER) (test 0 /100 WBC 0-0 pndo=813) NEUTROPHILS RELATIVE PERCENT (BEAKER) (test 68 % romn=460) LYMPHOCYTES RELATIVE PERCENT (BEAKER) (test 15 % srdm=849) MONOCYTES RELATIVE PERCENT (BEAKER) (test 15 % mkbc=366) EOSINOPHILS RELATIVE PERCENT (BEAKER) (test 2 % jmmv=704) BASOPHILS RELATIVE PERCENT (BEAKER) (test 0 % xull=290) NEUTROPHILS ABSOLUTE COUNT (BEAKER) (test 8.19 K/ L 1.80-8.00 pbcp=480) LYMPHOCYTES ABSOLUTE COUNT (BEAKER) (test 1.80 K/ L 1.48-4.50 agpx=011) MONOCYTES ABSOLUTE COUNT (BEAKER) (test 1.78 K/ L 0.00-1.30 yaam=616) EOSINOPHILS ABSOLUTE COUNT (BEAKER) (test 0.27 K/ L 0.00-0.50 hiof=958) BASOPHILS ABSOLUTE COUNT (BEAKER) (test 0.02 K/ L 0.00-0.20 xkcy=080) 0.001.360.000.000.000.000.000.000.000.000.000.000.000.00BASI METABOLIC [id number] 04:06:00 Test Item Value Reference Range Comments SODIUM (BEAKER) (test 137 meq/L 136-145 apge=083) POTASSIUM (BEAKER) (test 3.7 meq/L 3.5-5.1 tuch=029) CHLORIDE (BEAKER) (test 103 meq/L 98-107 gyyt=311) CO2 (BEAKER) (test 24 meq/L 22-29 whkr=735) BLOOD UREA NITROGEN 13 mg/dL 7-21 (BEAKER) (test yfpd=997) CREATININE (BEAKER) (test 0.96 mg/dL 0.57-1.25 ozsw=501) GLUCOSE RANDOM (BEAKER) 125 mg/dL 70-105 (test lqxw=389) CALCIUM (BEAKER) (test 8.6 mg/dL 8.4-10.2 dpmk=302) EGFR (BEAKER) (test 79 mL/min/1.73 sq m ESTIMATED GFR IS NOT queu=6895) ACCURATE CREATININE CLEARANCE IN PREDICTING GLOMERULAR FILTRATION RATE. ESTIMATED GFR IS NOT APPLICABLE FOR DIALYSIS PATIENTS. CBC W/PLT COUNT & AUTO [id number] 05:23:00 Test Item Value Reference Range Comments WHITE BLOOD CELL COUNT (BEAKER) (test kqmt=187) 12.6 K/ L 4.0-10.0 RED BLOOD CELL COUNT (BEAKER) (test ffjx=438) 4.51 M/ L 4.20-5.80 HEMOGLOBIN (BEAKER) (test lthm=540) 16.1 GM/DL 13.0-16.8 HEMATOCRIT (BEAKER) (test bqbl=149) 49.0 % 40.0-50.0 MEAN CORPUSCULAR VOLUME (BEAKER) (test zwcr=996) 109.0 fL 82.0-98.0 MEAN CORPUSCULAR HEMOGLOBIN (BEAKER) (test 35.6 pg 27.0-33.0 lmcr=527) MEAN CORPUSCULAR HEMOGLOBIN CONC (BEAKER) (test 32.7 GM/DL 32.0-36.0 idyn=146) RED CELL DISTRIBUTION WIDTH (BEAKER) (test 14.3 % 10.3-14.2 jxyb=125) PLATELET COUNT (BEAKER) (test nems=175) 125 K/CU MM 150-430 MEAN PLATELET VOLUME (BEAKER) (test nbzs=554) 9.2 fL 6.5-10.5 NUCLEATED RED BLOOD CELLS (BEAKER) (test 0 /100 WBC 0-0 vtqm=375) NEUTROPHILS RELATIVE PERCENT (BEAKER) (test 71 % abea=006) LYMPHOCYTES RELATIVE PERCENT (BEAKER) (test 14 % kcto=464) MONOCYTES RELATIVE PERCENT (BEAKER) (test 13 % gbrb=574) EOSINOPHILS RELATIVE PERCENT (BEAKER) (test 1 % avgg=128) BASOPHILS RELATIVE PERCENT (BEAKER) (test 0 % canr=618) NEUTROPHILS ABSOLUTE COUNT (BEAKER) (test 8.94 K/ L 1.80-8.00 hihu=633) LYMPHOCYTES ABSOLUTE COUNT (BEAKER) (test 1.80 K/ L 1.48-4.50 frtv=876) MONOCYTES ABSOLUTE COUNT (BEAKER) (test 1.66 K/ L 0.00-1.30 ctrf=806) EOSINOPHILS ABSOLUTE COUNT (BEAKER) (test 0.14 K/ L 0.00-0.50 wore=233) BASOPHILS ABSOLUTE COUNT (BEAKER) (test 0.04 K/ L 0.00-0.20 ctvu=916) 0.00BASI METABOLIC [id number] 04:54:00 Test Item Value Reference Range Comments SODIUM (BEAKER) (test 137 meq/L 136-145 gexa=008) POTASSIUM (BEAKER) (test 4.2 meq/L 3.5-5.1 Specimen slightly pgku=347) hemolyzed CHLORIDE (BEAKER) (test 105 meq/L 98-107 ptov=433) CO2 (BEAKER) (test 23 meq/L 22-29 gksu=565) BLOOD UREA NITROGEN 16 mg/dL 7-21 (BEAKER) (test trbn=393) CREATININE (BEAKER) (test 0.93 mg/dL 0.57-1.25 Specimen slightly fdxt=981) hemolyzed GLUCOSE RANDOM (BEAKER) 138 mg/dL 70-105 (test eisr=492) CALCIUM (BEAKER) (test 8.5 mg/dL 8.4-10.2 xjfc=426) EGFR (BEAKER) (test 82 mL/min/1.73 sq m ESTIMATED GFR IS NOT lyrp=1253) ACCURATE CREATININE CLEARANCE IN PREDICTING GLOMERULAR FILTRATION RATE. ESTIMATED GFR IS NOT APPLICABLE FOR DIALYSIS PATIENTS. POCT-GLUCOSE [id number] 22:27:00 Test Item Value Reference Range Comments POC-GLUCOSE METER (BEAKER) 109 mg/dL 70-110 TESTED AT [address] (test mxze=1177) [place] [id number] POCT-GLUCOSE [id number] 18:01:00 Test Item Value Reference Range Comments POC-GLUCOSE METER (BEAKER) 107 mg/dL 70-110 TESTED AT [address] (test njbq=9489) [place] [id number] POCT-GLUCOSE [id number] 12:01:00 Test Item Value Reference Range Comments POC-GLUCOSE METER (BEAKER) 128 mg/dL 70-110 TESTED AT [address] (test xprp=9124) [facility] [id number] BASIC METABOLIC [id number] 05:57:00 Test Item Value Reference Range Comments SODIUM (BEAKER) (test 139 meq/L 136-145 mvpq=147) POTASSIUM (BEAKER) (test 4.1 meq/L 3.5-5.1 Specimen slightly iwdx=089) hemolyzed CHLORIDE (BEAKER) (test 105 meq/L 98-107 thla=092) CO2 (BEAKER) (test 23 meq/L 22-29 gdlb=346) BLOOD UREA NITROGEN 14 mg/dL 7-21 (BEAKER) (test detk=845) CREATININE (BEAKER) (test 1.00 mg/dL 0.57-1.25 Specimen slightly ivry=706) hemolyzed GLUCOSE RANDOM (BEAKER) 117 mg/dL 70-105 (test wszm=874) CALCIUM (BEAKER) (test 8.3 mg/dL 8.4-10.2 bpus=760) EGFR (BEAKER) (test 76 mL/min/1.73 sq m ESTIMATED GFR IS NOT jfyg=2204) ACCURATE CREATININE CLEARANCE IN PREDICTING GLOMERULAR FILTRATION RATE. ESTIMATED GFR IS NOT APPLICABLE FOR DIALYSIS PATIENTS. CBC W/PLT COUNT & AUTO [id number] 05:32:00 Test Item Value Reference Range Comments WHITE BLOOD CELL COUNT (BEAKER) (test solt=360) 12.0 K/ L 4.0-10.0 RED BLOOD CELL COUNT (BEAKER) (test qbuj=162) 4.78 M/ L 4.20-5.80 HEMOGLOBIN (BEAKER) (test bgyh=939) 16.7 GM/DL 13.0-16.8 HEMATOCRIT (BEAKER) (test xxlm=665) 52.4 % 40.0-50.0 MEAN CORPUSCULAR VOLUME (BEAKER) (test ctzg=446) 110.0 fL 82.0-98.0 MEAN CORPUSCULAR HEMOGLOBIN (BEAKER) (test 35.0 pg 27.0-33.0 zbsy=561) MEAN CORPUSCULAR HEMOGLOBIN CONC (BEAKER) (test 31.9 GM/DL 32.0-36.0 pljx=286) RED CELL DISTRIBUTION WIDTH (BEAKER) (test 14.2 % 10.3-14.2 fwhq=542) PLATELET COUNT (BEAKER) (test vvtr=913) 130 K/CU MM 150-430 MEAN PLATELET VOLUME (BEAKER) (test jomh=532) 8.8 fL 6.5-10.5 NUCLEATED RED BLOOD CELLS (BEAKER) (test 0 /100 WBC 0-0 scsc=447) NEUTROPHILS RELATIVE PERCENT (BEAKER) (test 70 % uymo=370) LYMPHOCYTES RELATIVE PERCENT (BEAKER) (test 18 % mimu=352) MONOCYTES RELATIVE PERCENT (BEAKER) (test 10 % umzu=614) EOSINOPHILS RELATIVE PERCENT (BEAKER) (test 1 % xrlb=064) BASOPHILS RELATIVE PERCENT (BEAKER) (test 0 % ebch=860) NEUTROPHILS ABSOLUTE COUNT (BEAKER) (test 8.43 K/ L 1.80-8.00 xthv=121) LYMPHOCYTES ABSOLUTE COUNT (BEAKER) (test 2.16 K/ L 1.48-4.50 hqoy=989) MONOCYTES ABSOLUTE COUNT (BEAKER) (test 1.22 K/ L 0.00-1.30 hyav=122) EOSINOPHILS ABSOLUTE COUNT (BEAKER) (test 0.15 K/ L 0.00-0.50 omuo=969) BASOPHILS ABSOLUTE COUNT (BEAKER) (test 0.05 K/ L 0.00-0.20 ytzi=742) 0.00POCT-GLUCOSE [id number] 22:10:00 Test Item Value Reference Range Comments POC-GLUCOSE METER (BEAKER) 110 mg/dL 70-110 TESTED AT [address] (test zevi=0240) [facility] [id number] POCT-GLUCOSE [id number] 17:10:00 Test Item Value Reference Range Comments POC-GLUCOSE METER (BEAKER) 89 mg/dL 70-110 TESTED AT [address] (test qnfv=9296) [facility] [id number] POCT-GLUCOSE [id number] 12:35:00 Test Item Value Reference Range Comments POC-GLUCOSE METER (BEAKER) 107 mg/dL 70-110 TESTED AT [address] (test eiqz=6902) [facility] [id number] POCT-GLUCOSE [id number] 10:30:00 Test Item Value Reference Range Comments POC-GLUCOSE METER (BEAKER) 114 mg/dL 70-110 TESTED AT [address] (test iwzt=4692) [facility] [address] HEMOGLOBIN [id number] 08:31:00 Test Item Value Reference Range Comments HEMOGLOBIN A1C (BEAKER) (test czbn=125) 5.1 % 4.3-6.1 [id number] 04:17:00 Test Item Value Reference Range Comments PHOSPHORUS (BEAKER) (test pfmk=536) 4.1 mg/dL 2.3-4.7 [id number] 04:17:00 Test Item Value Reference Range Comments MAGNESIUM (BEAKER) (test drdv=844) 1.9 mg/dL 1.6-2.6 BASIC METABOLIC [id number] 04:17:00 Test Item Value Reference Range Comments SODIUM (BEAKER) (test 139 meq/L 136-145 beou=180) POTASSIUM (BEAKER) (test 4.4 meq/L 3.5-5.1 btbm=363) CHLORIDE (BEAKER) (test 105 meq/L 98-107 dvhq=282) CO2 (BEAKER) (test 22 meq/L 22-29 tfbi=175) BLOOD UREA NITROGEN 17 mg/dL 7-21 (BEAKER) (test xahq=180) CREATININE (BEAKER) (test 1.16 mg/dL 0.57-1.25 axxs=761) GLUCOSE RANDOM (BEAKER) 100 mg/dL 70-105 (test pqqc=053) CALCIUM (BEAKER) (test 8.6 mg/dL 8.4-10.2 brjr=680) EGFR (BEAKER) (test 64 mL/min/1.73 sq m ESTIMATED GFR IS NOT bwbb=0708) ACCURATE CREATININE CLEARANCE IN PREDICTING GLOMERULAR FILTRATION RATE. ESTIMATED GFR IS NOT APPLICABLE FOR DIALYSIS PATIENTS. HEPATIC FUNCTION [id number] 04:17:00 Test Item Value Reference Range Comments TOTAL PROTEIN (BEAKER) (test tdjd=277) 6.6 gm/dL 6.0-8.3 ALBUMIN (BEAKER) (test ckty=7653) 3.7 g/dL 3.5-5.0 BILIRUBIN TOTAL (BEAKER) (test wzuj=884) 1.2 mg/dL 0.2-1.2 BILIRUBIN DIRECT (BEAKER) (test zleu=687) 0.3 mg/dL 0.1-0.5 ALKALINE PHOSPHATASE (BEAKER) (test foms=951) 45 U/L 40-150 AST (SGOT) (BEAKER) (test ujhs=973) 22 U/L 5-34 ALT (SGPT) (BEAKER) (test wbwt=671) 21 U/L 6-55 CBC W/PLT COUNT & AUTO [id number] 04:14:00 Test Item Value Reference Range Comments WHITE BLOOD CELL COUNT (BEAKER) (test evsx=435) 16.1 K/ L 4.0-10.0 RED BLOOD CELL COUNT (BEAKER) (test ealy=427) 4.74 M/ L 4.20-5.80 HEMOGLOBIN (BEAKER) (test syyw=558) 17.0 GM/DL 13.0-16.8 HEMATOCRIT (BEAKER) (test fxvn=588) 50.9 % 40.0-50.0 MEAN CORPUSCULAR VOLUME (BEAKER) (test rwma=478) 107.0 fL 82.0-98.0 MEAN CORPUSCULAR HEMOGLOBIN (BEAKER) (test 35.8 pg 27.0-33.0 kohy=644) MEAN CORPUSCULAR HEMOGLOBIN CONC (BEAKER) (test 33.3 GM/DL 32.0-36.0 flpc=804) RED CELL DISTRIBUTION WIDTH (BEAKER) (test 15.5 % 10.3-14.2 rdit=051) PLATELET COUNT (BEAKER) (test wije=176) 136 K/CU MM 150-430 MEAN PLATELET VOLUME (BEAKER) (test ttiu=044) 9.1 fL 6.5-10.5 NUCLEATED RED BLOOD CELLS (BEAKER) (test 0 /100 WBC 0-0 mlew=590) NEUTROPHILS RELATIVE PERCENT (BEAKER) (test 67 % ccxf=360) LYMPHOCYTES RELATIVE PERCENT (BEAKER) (test 22 % hvhk=799) MONOCYTES RELATIVE PERCENT (BEAKER) (test 10 % kkvt=849) EOSINOPHILS RELATIVE PERCENT (BEAKER) (test 1 % jgxj=550) BASOPHILS RELATIVE PERCENT (BEAKER) (test 1 % ejfs=604) NEUTROPHILS ABSOLUTE COUNT (BEAKER) (test 10.80 K/ L 1.80-8.00 mzoq=490) LYMPHOCYTES ABSOLUTE COUNT (BEAKER) (test 3.50 K/ L 1.48-4.50 ykro=895) MONOCYTES ABSOLUTE COUNT (BEAKER) (test 1.53 K/ L 0.00-1.30 gdni=104) EOSINOPHILS ABSOLUTE COUNT (BEAKER) (test 0.14 K/ L 0.00-0.50 xwhi=988) BASOPHILS ABSOLUTE COUNT (BEAKER) (test 0.12 K/ L 0.00-0.20 opmu=011) 0.00URINALYSIS W/ [id number] 01:25:00 Test Item Value Reference Range Comments COLOR (BEAKER) (test hhkz=052) Yellow CLARITY (BEAKER) (test mobh=560) Clear SPECIFIC GRAVITY UA (BEAKER) (test typv=476) 1.020 1.001-1.035 PH UA (BEAKER) (test owty=879) 5.5 5.0-8.0 PROTEIN UA (BEAKER) (test vmus=437) 30 mg/dL Negative GLUCOSE UA (BEAKER) (test qjtj=260) Negative Negative KETONES UA (BEAKER) (test fvvb=832) Negative Negative BILIRUBIN UA (BEAKER) (test nnzw=307) Negative Negative BLOOD UA (BEAKER) (test mpmz=962) Negative Negative NITRITE UA (BEAKER) (test xiql=543) Negative Negative LEUKOCYTE ESTERASE UA (BEAKER) (test oewp=809) Negative Negative UROBILINOGEN UA (BEAKER) (test fnvk=105) 0.2 mg/dL 0.2-1.0 RBC UA (BEAKER) (test wjtt=969) < /HPF WBC UA (BEAKER) (test yuez=377) 2 /HPF MUCUS (BEAKER) (test emjm=4434) Rare HYALINE CASTS (BEAKER) (test ahlj=974) 46 /LPF GRANULAR CASTS (BEAKER) (test rmhk=572) 24 /LPF AMORPHOUS CRYSTALS (BEAKER) (test ezxf=4275) Occasional SOURCE(BEAKER) (test qijm=1098) Urine, Voided POCT-GLUCOSE [id number] 21:56:00 Test Item Value Reference Range Comments POC-GLUCOSE METER (BEAKER) 114 mg/dL 70-110 TESTED AT [facility] [address] [place] [address] (test fyrg=9576) [facility] [address] TSH/FREE T4 IF [id number] 20:54:00 Test Item Value Reference Range Comments THYROID STIMULATING HORMONE (BEAKER) (test 2.07 uIU/mL 0.35-4.94 sypw=033) VITAMIN B12 AND [id number] 20:54:00 Test Item Value Reference Range Comments VITAMIN B12 (BEAKER) (test svgh=152) 273 pg/mL 213-816 FOLATE (BEAKER) (test khhb=236) 3.7 ng/mL >=7.0 Effective 08/17/2014: Folate Reference Range ChangeNew: >=7.0 Previous: & gt;=5.4LIPID [id number] 20:20:00 Test Item Value Reference Range Comments TRIGLYCERIDES (BEAKER) (test viwi=127) 249 mg/dL CHOLESTEROL (BEAKER) (test amiu=346) 235 mg/dL HDL CHOLESTEROL (BEAKER) (test fnik=229) 35 mg/dL LDL CHOLESTEROL CALCULATED (BEAKER) (test 150 mg/dL omcw=526) Triglyceride Reference Range: Low Risk <150 Borderline 150- 199 High Risk 200-499 Very High Risk >=500Cholesterol Reference Range: Low Risk <200 Borderline 200-239 High Risk > 240HDL Cholesterol Reference Range: Low Risk >=60 High Risk <40LDL Cholesterol Reference Range: Optimal <100 Near Optimal 100-129 Borderline 130-159 High 160-189 Very High >=190
[2018-01-03 06:35] LABS: Arterial Blood Carboxyhemoglob 0.9 % (0-1.5); Blood Gas Oxyhemoglobin 98.5 % (94-97); Blood O2 Saturation 99.7 % (92-98.5)
[2018-01-03] MEDS ORDERED: NA CHLORIDE 0.9% 1,000 ML ONE ×3 (06:55→08:57)
[2018-01-03] MEDS ORDERED: CEFEPIME 1 GM/100 ML BAG IV ONE (07:10)
[2018-01-03] MEDS ORDERED: LIDOCAINE 1% MPF 5 ML VIAL ONE (07:22)
[2018-01-03 07:40] LABS: Protime INR 1.44
[2018-01-03 07:47] LABS: Potassium 4.5 mEq/L (3.6-5.0)
[2018-01-03 07:49] LABS: Absolute Lymphocytes (CBC) 1.6 K/uL (0.7-4.9); Absolute Monocytes 1.4 K/uL (0.1-1.3); Basophils % 0.7 % (0-1.3); Eosinophils % 0.3 % (0-4.4); Hematocrit 50.4 % (39.6-49.0); Lymphocytes % 14.4 % (15.3-44.8); MCH 31.5 pg (27.0-35.0); MCV 98.7 fL (80-100); MPV 10.9 fL (7.6-11.3); Monocytes % 12.6 % (3.3-12.3); RBC Red Blood Cell Count 5.11 M/uL (4.33-5.43)
[2018-01-03 07:54] LABS: Albumin 3.4 g/dL (3.2-5.5); Bilirubin Direct 0.7 mg/dL (0-0.2); Bilirubin Total 1.7 mg/dL (0.3-1.2); Protein, Total 6.2 g/dL (6.0-8.3)
[2018-01-03] MEDS ORDERED: VANCOMYCIN/NS 1 gm 1 GM/250 ML BAG ONE (07:54)
--- NOTE | 2018-01-03 08:04 | ER ---
Nurse's Notes [facility] Name: Chau Ortez Age: 62 yrs Sex: Male : 1955 Arrival Date: 01/03/2018 Time: 06:22 Bed 4 Private MD: Diagnosis: Hypotension;Sepsis, unspecified organism;Cyanosis;Cardiomegaly;Cardiomyopathy;Unspecified combined systolic (congestive) and diastolic (congestive) heart failure;Dyspnea;Type 1 diabetes mellitus Presentation: 01/03 06:18 Presenting complaint: EMS states: that pt stated to have chest pain and nauseated at 0445. Upon their arrival pt was cyanotic and they were unable to obtain bp. Pt did take Aspirin 81 mg x 2 prior to their arrival. Upon arriving here pt was short of breath but denied any chest pain. Transition of care: patient was not received from another setting of care. Onset of symptoms was January 03, 2018 at 04:45. Care prior to arrival: Medication(s) given: ASA, 81 mg, x 2, Normal saline infusion, 800 ml 1/2 amp Atropine, Levophed drip at 11.4 mcg/min IV initiated. 20 GA, in the right antecubital area, Oxygen administered. via a non-rebreather mask. 06:18 Method Of Arrival: EMS: [facility] 06:18 Acuity: JUANITO 2 fc Historical: - Allergies: 06:39 Ciprofloxacin HCl; 06:39 PENICILLINS; - Home Meds: 06:39 aspirin 81 mg Oral TbEC once daily [Active]; atorvastatin 80 mg Oral tab 1 tab once fc daily [Active]; 06:44 metoprolol 50 mg daily [Active]; furosemide 20 mg Oral tab 1 tab once daily [Active]; Amitriptyline Oral 1 tab once daily [Active]; - PMHx: 06:39 High Cholesterol; Hypertension; PUD; CAD; Myocardial infarction; neuropathy; CVA; - PSHx: 06:39 Cholecystectomy; skin graft to L foot; Pacemaker; CABG; - Immunization history:: Last tetanus immunization: unknown. - Social history:: Smoking status: Patient uses tobacco products, smokes one-half pack cigarettes per day, Patient uses alcohol, on a daily basis. Patient/guardian denies using street drugs. Screenin:18 Abuse screen: Denies threats or abuse. Nutritional screening: No deficits noted. fc Tuberculosis screening: No symptoms or risk factors identified. 07:30 Fall Risk Total Sal Fall Scale indicates High Risk Score (45 or more points). Fall hb prevention measures have been instituted. Side Rails Up X 2 Frequent Obs/Assessments Occuring As available patient and family educated on Fall Prevention Program and Strategies. Assessment: 06:20 General: Appears distressed, Behavior is cooperative, anxious. Pain: Denies pain. Pain jd3 does not radiate. Pain began suddenly. Neuro: Level of Consciousness is awake, alert, obeys commands, Oriented to person, place, situation. Cardiovascular: Heart tones S1 S2 present Capillary refill is sluggish Rhythm is Respiratory: Airway is patent Respiratory effort is even, unlabored, Respiratory pattern is regular, symmetrical, Breath sounds are clear bilaterally. GI: Abdomen is round Bowel sounds present X 4 quads. Abd is soft and non tender X 4 quads. Patient currently denies nausea, vomiting. : No signs and/or symptoms were reported regarding the genitourinary system. EENT: No signs and/or symptoms were reported regarding the EENT system. Derm: Skin is intact, Skin is dry, Skin is cyanotic Skin temperature is cool. Musculoskeletal: Circulation, motion, and sensation intact. Range of motion: intact in all extremities. 07:05 Reassessment: Dr. Maravilla at bedside for CVC placement. BIPAP 13/8, R14, FIO2 100%. hb 07:36 Reassessment: Ok to use RIGHT IJ CVC per Dr. Maravilla. hb 07:40 Reassessment: SpO2 30-70%, Dr. Goodrich aware. hb 08:02 Reassessment: Pt transported to CT on 15L NRB with tech and nurse. hb 08:20 Reassessment: Pt returned from CT with tech and nurse. BIPAP resumed R14, 13/8, 100% hb FiO2. Answering questions appropriately, denies pain. Admission ordered, awaiting room assignment at this time. 09:00 Reassessment: Levophed continues at 25 mcg/hr. Transfer to [facility] pending. hb 09:26 Reassessment: Report called to Kaity NEGRO at [facility]. hb Vital Signs: 06:18 BP 102 / 75; Pulse 72; Resp 24; Temp 96.2(A); Pulse Ox 84% on 100% Non-rebreather mask; Weight 114.76 kg (R); Height 6 ft. 3 in. (190.50 cm) (R); Pain 0/10; 07:00 BP 98 / 38; Pulse 89; Resp 22; Pulse Ox 70% on BiPAP; hb 07:15 BP 112 / 89; Pulse 89; hb 07:30 BP 116 / 88; Pulse 90; hb 07:45 BP 113 / 74; Pulse 92; Resp 24; Pulse Ox 68% on BiPAP; hb 08:00 BP 112 / 89; Pulse 100; Resp 23; Pulse Ox 72% on BiPAP; hb 08:15 BP 115 / 91; Pulse 102; hb 08:30 BP 43 / 38; Pulse 92; hb 08:45 BP 120 / 55; Pulse 90; hb 09:00 BP 101 / 84; Pulse 90; Resp 17; Pulse Ox 80% on 100% BiPAP; hb 09:15 BP 99 / 81; Pulse 72; Resp 19; Pulse Ox 79% on BiPAP; hb 06:18 Body Mass Index 31.62 (114.76 kg, 190.50 cm) 07:00 Loevophed 20 mcg/min infusing at this time hb 08:30 levophed increased to 25mcg/min hb ED Course: 06:18 Arm band placed on Patient placed in an exam room, on a stretcher, on oxygen, on collision technician, on pulse oximetry. 06:18 Patient has correct armband on for positive identification. Bed in low position. Call light in reach. Side rails up X2. laminating machine feeder on. Pulse ox on. NIBP on. 06:18 No provider procedures requiring assistance completed. Oxygen administration via non-rebreather mask \T\ 15L/min. 06:22 Patient arrived in ED. ds1 06:22 O2 via Bipap I 12, E 5 , rate 12 and FIO2 of 100%. fc 06:29 Deandre Maravilla MD is Attending Physician. gs 06:33 Triage completed. fc 06:44 X-ray completed. Portable x-ray completed in exam room. Patient tolerated procedure jb2 well. 06:49 Chest Single View XRAY In Process Unspecified. EDMS 07:17 Report given to Rekha Archer RN. jd3 07:20 Attending Physician role handed off by Deandre Maravilla MD cassie 07:20 Luis Felipe Goodrich MD is Attending Physician. cassie 07:29 Chest Single View XRAY In Process Unspecified. EDMS 07:30 X-ray completed. Portable x-ray completed in exam room. Patient tolerated procedure jb2 well. 07:43 BNP Sent. ss 07:43 CPK Sent. ss 07:43 LFT's Sent. ss 07:43 CBC with Diff Sent. ss 07:43 Lipase Sent. ss 07:43 Lactate Sent. ss 07:43 Procalcitonin Sent. ss 07:43 Protime (+inr) Sent. ss 07:43 Troponin (emerg Dept Use Only) Sent. ss 07:59 Aramis Macias DO is Hospitalizing Provider. cassie 08:11 CT Traumagram (Head C Spine CAP wo con) In Process Unspecified. EDMS 08:15 CT completed. Patient tolerated procedure well. Patient moved back from CT. jg1 08:18 Rekha Hogan, RN is Primary Nurse. hb 08:47 Radiology exam delayed due to admitting dr assessing pt and echo waiting. aa4 09:30 Patient transferred, IV remains in place. hb Administered Medications: 07:40 Drug: NS 0.9% 1000 ml Route: IV; Rate: 1 bolus; Site: Other; hb 08:45 Follow up: Response: No adverse reaction; IV Status: Completed infusion hb 07:40 Drug: Cefepime 1 grams Route: IVPB; Rate: 200 ml/hr; Infused Over: 30 mins; Site: Other;hb 08:15 Follow up: Response: No adverse reaction; IV Status: Completed infusion hb 07:40 Drug: NS 0.9% 1000 ml Route: IV; Rate: 1 bolus; Site: Other; hb 07:40 Drug: vancoMYCIN 1 grams Route: IVPB; Infused Over: 2 hrs; Site: Other; hb 08:40 Drug: NS 0.9% 1000 ml Route: IV; Rate: 1000 ml; Site: Other; hb 09:30 Follow up: Response: No adverse reaction; IV Status: Completed infusion hb 08:43 Drug: Solu-CORTEF 100 mg Route: IVP; Site: Other; hb 09:30 Follow up: Response: No adverse reaction hb 08:49 Drug: ProTONIX 40 mg Route: IVP; Site: Other; hb 09:45 Follow up: Response: No adverse reaction hb 08:56 Drug: Lovenox 100 mg Route: Sub-Q; Site: abdomen; hb 09:30 Follow up: Response: No adverse reaction hb Outcome: 08:03 Decision to Hospitalize by Provider. cassie 09:02 ER care complete, transfer ordered by . cassie 09:45 Transferred by helicopter to [facility]. hb 09:45 critical 09:45 Instructed on the need for transfer, Demonstrated understanding of instructions. 09:54 Patient left the ED. hb Addendum: 01/05/2018 08:09 Addendum: Culture Results: Positive blood culture. Phone call Attempt #1 Preliminary s s blood culture results sent to [facility] ATTN to SRUTHI Calero charge nurse. Signatures: Dispatcher [employer] EDMS Luis Felipe Goodrich MD MD cha Buechter, Vance damon2 Marcia Rojas jg1 Kristin Capone RN RN [facility] Center[facility], Yara ds1 Kasie Blue aa4 Chetna Ferreira RN RN Rekha Hogan RN RN Deandre Maravilla MD MD gs Davies, Jonathon, RN RN jd3 Corrections: (The following items were deleted from the chart) 04 06:37 06:18 BP 102 / 75; Pulse 72bpm; Resp 24bpm; Pulse Ox 84% RA; Temp 96.2F Axillary; fc 114.76 kg Reported; Height 6 ft. 3 in. Reported; BMI: 31.6; Pain 0/10; fc 08:46 07:00 BP 98 / 38; Pulse 89bpm; Resp 22bpm; Pulse Ox 70% BiPAP; hb hb
--- NOTE | 2018-01-03 08:04 | EDPHYS ---
Physician Documentation [facility] Name: Chau Ortez Age: 62 yrs Sex: Male : 1955 Arrival Date: 01/03/2018 Time: 06:22 Bed 4 Private MD: ED Physician Luis Felipe Goodrich HPI: 01/03 07:22 This 62 yrs old Male presents to ER via EMS with complaints of Chest Pain. gs 07:22 This 62 yrs old Male presents to ER via EMS with complaints of sob. gs 07:22 Onset: acutely, just prior to arrival. gs 07:22 Onset: The symptoms/episode began/occurred yesterday. Duration: The symptoms are gs continuous. The patient's shortness of breath has no apparent modifying factors. Associated signs and symptoms: Pertinent positives: productive cough. Severity of symptoms: At their worst the symptoms were incapacitating in the emergency department the symptoms are unchanged. The patient has experienced similar episodes in the past, a few times. Historical: - Allergies: 06:39 Ciprofloxacin HCl; fc 06:39 PENICILLINS; fc - Home Meds: 06:39 aspirin 81 mg Oral TbEC once daily [Active]; atorvastatin 80 mg Oral tab 1 tab once fc daily [Active]; 06:44 metoprolol 50 mg daily [Active]; furosemide 20 mg Oral tab 1 tab once daily [Active]; fc Amitriptyline Oral 1 tab once daily [Active]; - PMHx: 06:39 High Cholesterol; Hypertension; PUD; CAD; Myocardial infarction; neuropathy; CVA; fc - PSHx: 06:39 Cholecystectomy; skin graft to L foot; Pacemaker; CABG; fc - Immunization history:: Last tetanus immunization: unknown. - Social history:: Smoking status: Patient uses tobacco products, smokes one-half pack cigarettes per day, Patient uses alcohol, on a daily basis. Patient/guardian denies using street drugs. ROS: 07:22 Unable to obtain ROS due to patient distress. gs 08:20 Eyes: Negative for injury, pain, redness, and discharge. cassie Exam: 07:22 Constitutional: The patient appears alert, awake, cyanosis gs 07:22 Cardiovascular: Rate: tachycardic, Rhythm: regular, Pulses: not palpable. 07:22 Cardiovascular: Edema: 1+ edema to level of left ankle and right ankle. 07:22 Respiratory: severe repiratory distress is noted, Respirations: tachypnea, Breath sounds: decreased breath sounds, that are mild, are scattered. 07:22 Skin: Appearance: Color: cyanotic. 07:22 Neuro: Exam negative for acute changes, focal neuro deficits, motor deficits, sensory deficits, altered mental status, confusion. 07:26 ECG was reviewed by the Attending Physician. gs 08:19 Eyes: Pupils equal round and reactive to light, extra-ocular motions intact. Lids and cassie lashes normal. Conjunctiva and sclera are non-icteric and not injected. Cornea within normal limits. Periorbital areas with no swelling, redness, or edema. ENT: Nares patent. No nasal discharge, no septal abnormalities noted. Tympanic membranes are normal and external auditory canals are clear. Oropharynx with no redness, swelling, or masses, exudates, or evidence of obstruction, uvula midline. Mucous membranes moist. Vital Signs: 06:18 BP 102 / 75; Pulse 72; Resp 24; Temp 96.2(A); Pulse Ox 84% on 100% Non-rebreather mask; fc Weight 114.76 kg (R); Height 6 ft. 3 in. (190.50 cm) (R); Pain 0/10; 07:00 BP 98 / 38; Pulse 89; Resp 22; Pulse Ox 70% on BiPAP; hb 07:15 BP 112 / 89; Pulse 89; hb 07:30 BP 116 / 88; Pulse 90; hb 07:45 BP 113 / 74; Pulse 92; Resp 24; Pulse Ox 68% on BiPAP; hb 08:00 BP 112 / 89; Pulse 100; Resp 23; Pulse Ox 72% on BiPAP; hb 08:15 BP 115 / 91; Pulse 102; hb 08:30 BP 43 / 38; Pulse 92; hb 08:45 BP 120 / 55; Pulse 90; hb 09:00 BP 101 / 84; Pulse 90; Resp 17; Pulse Ox 80% on 100% BiPAP; hb 09:15 BP 99 / 81; Pulse 72; Resp 19; Pulse Ox 79% on BiPAP; hb 06:18 Body Mass Index 31.62 (114.76 kg, 190.50 cm) fc 07:00 Loevophed 20 mcg/min infusing at this time hb 08:30 levophed increased to 25mcg/min hb Procedures: 07:22 Central Line: the site was prepped with Betadine, in sterile fashion, a triple lumen gs catheter was inserted, in the right internal jugular vein, in 1 attempts. placement was verified, by CXR, by blood return, the site was dressed with 4X4s, Tegaderm, the patient tolerated the procedure, well. Ultrasound: Type: cvc placement, performed by the emergency department physician. MDM: 06:29 Patient medically screened. 07:47 Data reviewed: vital signs, nurses notes, lab test result(s), EKG, radiologic studies, cassie CT scan, plain films. 04 06:34 Order name: ABG; Complete Time: 07:21 gs 01/03 06:34 Order name: Basic Metabolic Panel 01/03 06:34 Order name: BNP 01/03 06:34 Order name: CBC with Diff; Complete Time: 08:18 gs 01/03 06:34 Order name: CPK 01/03 06:34 Order name: Lactate; Complete Time: 08:18 01/03 06:34 Order name: LFT's 01/03 06:34 Order name: Lipase; Complete Time: 08:18 gs 01/03 06:34 Order name: Procalcitonin; Complete Time: 08:36 gs 01/03 06:34 Order name: Protime (+inr); Complete Time: 08:18 gs 01/03 06:34 Order name: Troponin (emerg Dept Use Only); Complete Time: 08:18 gs 01/03 06:34 Order name: Basic Metabolic Panel; Complete Time: 08:18 EDMS 01/03 06:34 Order name: BNP B-Type Natriuretic Peptide; Complete Time: 08:18 EDMS 01/03 06:33 Order name: Chest Single View XRAY; Complete Time: 15:26 rg2 01/03 06:34 Order name: Creatine Phosphokinase; Complete Time: 08:18 EDMS 01/03 06:34 Order name: Liver (Hepatic) Function; Complete Time: 08:18 EDMS 01/03 07:17 Order name: Chest Single View XRAY; Complete Time: 15:26 gs 01/03 07:26 Order name: Blood Culture EDMS 01/03 07:42 Order name: Urine Microscopic Only; Complete Time: 15:26 ss 01/03 07:42 Order name: Urine Culture 01/03 07:46 Order name: Urine Dipstick--Ancillary (enter results); Complete Time: 08:36 ag 01/03 07:47 Order name: CT Traumagram (Head C Spine CAP wo con); Complete Time: 08:36 cassie 01/03 08:19 Order name: Echo w/ Doppler [facility] 01/03 08:19 Order name: US Extremity [place] Bilateral [facility] 01/03 06:34 Order name: Accucheck; Complete Time: 07:26 gs 01/03 06:34 Order name: Cardiac monitoring; Complete Time: 07:26 gs 01/03 06:34 Order name: EKG - Nurse/Tech; Complete Time: 07:26 gs 01/03 06:34 Order name: IV Saline Lock - Large Bore; Complete Time: 07:27 01/03 06:34 Order name: Labs collected and sent; Complete Time: 07:27 01/03 06:34 Order name: O2 Per Protocol; Complete Time: 07:27 01/03 06:34 Order name: O2 Sat Monitoring; Complete Time: 07:26 01/03 06:34 Order name: Urine Dipstick-Ancillary (obtain specimen); Complete Time: 07:43 01/03 07:21 Order name: [place]; Complete Time: 07:43 [facility] 01/03 07:42 Order name: EKG Electrocardiogram [facility] 01/03 08:17 Order name: CONS Physician Consult [facility] 01/03 09:18 Order name: Wound dressing; Complete Time: 18:43 cassie EC:26 Rate is 89 beats/min. Rhythm is regular, Paced. IN interval is normal. QRS interval is gs normal. QT interval is normal. T waves are Flattened. Clinical impression: Abnormal EKG without significant change. Interpreted by me. Administered Medications: 07:40 Drug: NS 0.9% 1000 ml Route: IV; Rate: 1 bolus; Site: Other; hb 08:45 Follow up: Response: No adverse reaction; IV Status: Completed infusion hb 07:40 Drug: Cefepime 1 grams Route: IVPB; Rate: 200 ml/hr; Infused Over: 30 mins; Site: Other;hb 08:15 Follow up: Response: No adverse reaction; IV Status: Completed infusion hb 07:40 Drug: NS 0.9% 1000 ml Route: IV; Rate: 1 bolus; Site: Other; hb 07:40 Drug: vancoMYCIN 1 grams Route: IVPB; Infused Over: 2 hrs; Site: Other; hb 08:40 Drug: NS 0.9% 1000 ml Route: IV; Rate: 1000 ml; Site: Other; hb 09:30 Follow up: Response: No adverse reaction; IV Status: Completed infusion hb 08:43 Drug: Solu-CORTEF 100 mg Route: IVP; Site: Other; hb 09:30 Follow up: Response: No adverse reaction hb 08:49 Drug: ProTONIX 40 mg Route: IVP; Site: Other; hb 09:45 Follow up: Response: No adverse reaction hb 08:56 Drug: Lovenox 100 mg Route: Sub-Q; Site: abdomen; hb 09:30 Follow up: Response: No adverse reaction hb Disposition: 01/03/18 09:[address] [facility]. Diagnosis are Hypotension, Sepsis, unspecified organism, Cyanosis, Cardiomegaly, Cardiomyopathy, Unspecified combined systolic (congestive) and diastolic (congestive) heart failure, Dyspnea, Type 1 diabetes mellitus. - Reason for transfer: Higher level of care. - Accepting physician is to [facility], [facility] [address]. - Condition is Serious. - Problem is new. - Symptoms have improved. Signatures: Dispatcher [employer] EDMS Luis Felipe Goodrich MD MD cha Chretien, Felicia RN RN Rekha Thompson RN RN hb Starr, Gregory, MD MD gs Corrections: (The following items were deleted from the chart) 06:42 06:34 Chest Single View+[id number].[email or web address] ordered. EDMS EDMS
[2018-01-03 08:20] LABS: Urine Blood NEGATIVE (NEG); Urine Glucose NEGATIVE (NEG); Urine Protein 1+ (NEG); Urine Specific Gravity 1.025 (1.005-1.030)
--- NOTE | 2018-01-03 08:35 | RAD REPORT ---
EXAM DESCRIPTION: CT - Head C Spine Cap Wo Con - 01/03/2018 8:11 am CLINICAL HISTORY: Trauma, head and neck injury. Chest, abdomen and pelvis pain. Cyanosis, shortness of breath. COMPARISON: None. TECHNIQUE: CT head without contrast. CT cervical spine without contrast with coronal and sagittal reformatted images. CT chest, abdomen and pelvis without contrast with coronal and sagittal reformatted images of the spi ne. All CT scans are performed using dose optimization technique as appropriate and may include automated exposure control or mA/KV adjustment according to patient size. FINDINGS: CT HEAD WITHOUT CONTRAST: No intracranial hemorrhage, hydrocephalus or extra-axial fluid collection. Mild brain atrophy noted. No areas of brain edema or midline shift. Vertebral arteries are heavily calcified. The paranasal sinuses and mastoids are clear. The calvarium is intact. CT CERVICAL SPINE WITHOUT CONTRAST: No fracture or subluxation. The prevertebral soft tissues are normal in thickness.Mild lower cervica l degenerative changes. CT CHEST, ABDOMEN, PELVIS WITHOUT CONTRAST: NOTE: Lack of contrast is a significant limitation in the assessment of trauma related findings. Spec ifically, solid organ, vascular and bowel evaluation is significantly limited. Mild linear atelectasis is present in the right lung base.No focal consolidation typical of pneumonia seen.No pneumothorax or pericardial/pleural fluid. Mild cardiomegaly is seen with pacer device noted . Mild ascites is noted in the abdomen. Limited noncontrast assessment of the liver, spleen, pancreas, adrenal glands and kidneys shows no acute process. Cholecystectomy clips are seen. Aortoiliac atherosclerosis. No pelvic mass or hematoma. Bilateral inguinal hernias containing fluid s een, larger on the left. Compression deformity with sclerosis affects the L1 vertebral body, mild to moderate in severity. The age is uncertain of this injury, however favored to be chronic. IMPRESSION: Mild ascites is present. Mild compression fracture, favored to be chronic, affecting L1 vertebral body.
[2018-01-03] MEDS ORDERED: HYDROCORTISONE SUC 100 MG INJ ONE (08:57)
--- NOTE | 2018-01-03 09:06 | RAD REPORT ---
EXAM DESCRIPTION: RAD - Chest Single View - 01/03/2018 6:49 am CLINICAL HISTORY: Chest pain. COMPARISON: 08/03/2017 FINDINGS: Portable technique limits examination quality. The lungs are grossly clear. The heart is mildly enlarged in size with sternotomy wires present. Mult i lead pacer/defibrillator device is present. No displaced fractures. IMPRESSION: No acute intrathoracic process suspected.
[2018-01-03] MEDS ORDERED: PANTOPRAZOLE 40 MG INJ ONE (09:11)
--- NOTE | 2018-01-03 09:13 | ECHO ---
HEIGHT: 6 ft 3 in WEIGHT: 248 lb oz DATE OF STUDY: 01.03.[address]: Luis Felipe Goodrich MD 2-DIMENSIONAL: YES M.MODE: YES DOPPLER: YES COLOR FLOW: YES TDS: NO PORTABLE: NO DEFINITY: NO BUBBLE STUDY: NO DIAGNOSIS: CONGESTIVE HEART FAILURE CARDIAC HISTORY: CATHERIZATION: NO SURGERY: NO PROSTHETIC VALVE: NO PACEMAKER: NO MEASUREMENTS (cm) DIASTOLIC (NORMALS) SYSTOLIC (NORMALS) IVSd 1.3 (0.6-1.2) LA Diam 4.7 (1.9-4.0) LVEF 25% LVIDd 5.6 (3.5-5.7) LVIDs 4.9 (2.0-3.5) %FS 12% LVPWd 1.2 (0.6-1.2) Ao Diam 2.6 (2.0-3.7) 2 DIMENSIONAL ASSESSMENT: RIGHT ATRIUM: DILATED LEFT ATRIUM: DILATED RIGHT VENTRICLE: DILATED, PACEMAKER LEFT VENTRICLE: DILATED TRICUSPID VALVE: NORMAL MITRAL VALVE: NORMAL PULMONIC VALVE: NORMAL AORTIC VALVE: MILD SCLEROSIS PERICARDIAL EFFUSION: NONE AORTIC ROOT: NORMAL LEFT VENTRICULAR WALL MOTION: GLOBAL HYPOKINESIS. INFERIOR, POSTERIOR AKINESIS. DOPPLER/COLOR FLOW: MODERATE MITRAL REGURGITATION. MILD TRICUSPID REGURGITATION. NORMAL RIGHT VENTRCIULAR SYSTOLIC PRESSURE. COMMENTS: SEVERELY DEPRESSED LEFT VENTRICULAR EJECTION FRACTION, WORSE SINCE 08/05/17. PACEMAKER IN RIGHT VENTRICLE. DILATED LEFT ATRIUM, LEFT VENTRICLE, RIGHT ATRIUM, AND RIGHT VENTRICLE. MODERATE MITRAL REGURGITATION. MILD TRICUSPID REGURGITATION. TECHNOLOGIST: YAIR LIVINGSTON
[2018-01-03 09:15] LABS: Urine Amorphous Sediment 1+ /HPF (NONE SEEN); Urine Bacteria <20 /HPF (NONE SEEN); Urine Culture Reflex Order NOT NEEDED; Urine RBC <5 /HPF (NONE SEEN)
[2018-01-03] MEDS ORDERED: ENOXAPARIN 100 MG/ML SYR SQ ONE (09:17)
--- NOTE | 2018-01-03 09:18 | RAD REPORT ---
EXAM DESCRIPTION: RAD - Chest Single View - 01/03/2018 7:31 am CLINICAL HISTORY: Venous catheter placement. COMPARISON: 01/03/2018 FINDINGS: Portable technique limits examination quality. A right-sided IJ catheter has been placed since the comparative study. The tip is in the SVC. No post procedure pneumothorax.
--- NOTE | 2018-01-03 09:18 | EKG ---
Test Date: 2018-01-03 Test Time: 06:24:17 Compensation Analyst: LUISA MEASUREMENT RESULTS: Intervals: Rate: 89 TX: 152 QRSD: 158 QT: 446 QTc: 542 [place]: P: 81 TX: 152 QRS: -87 T: 49 INTERPRETIVE STATEMENTS: Atrial-sensed ventricular-paced rhythm Abnormal ECG Compared to ECG 08/04/2017 08:34:06 Sinus rhythm no longer present Electronically Signed On 01-03-18 09:17:51 CDT by Steven Mark
[2018-01-03] MEDS ORDERED: NOREPINEPHRINE 4mg/D5W 250mL 4 MG/250 ML BAG IV ONE (09:34)
[2018-01-03 10:09] VITALS: BP 99/81; O2SAT 79
== END 2018-01-03 09:54 | disposition short-term general hospital (02) ==
LOC: ER 06:21 → ERHOLD 08:07 → UNDOADMIN 08:07 → UNDODISIN 09:54
PROC: 05HM33Z Insertion of Infusion Device into Right Internal Jugular Vein, Percutaneous Approach (ICD-10-PCS; principal; 2018-01-03)
DX: I50.40 Unspecified combined systolic (congestive) and diastolic (congestive) heart failure (principal); I95.9 Hypotension, unspecified; A41.9 Sepsis, unspecified organism; R23.0 Cyanosis; I51.7 Cardiomegaly; I42.9 Cardiomyopathy, unspecified; R06.00 Dyspnea, unspecified; E10.9 Type 1 diabetes mellitus without complications; F17.210 Nicotine dependence, cigarettes, uncomplicated; I10 Essential (primary) hypertension; Z88.0 Allergy status to penicillin; Z88.3 Allergy status to other anti-infective agents; Z79.82 Long term (current) use of aspirin; Z95.0 Presence of cardiac pacemaker; Z95.1 Presence of aortocoronary bypass graft
CPT/HCPCS: 36415; 70450; 71045; 71250; 72125; 80048; 80076; 81003; 81015; 82550; 82805; 83605; 83690; 83880; 84145; 84484; 85025; 85610; 87040; 87077; 87086; 87088; 87186; 87205; 93005; 93306; 94660; 96361; 96365; 96372; 96375; 99285; C9113; J0692; J1650; J1720; J3370; J7030